=== PATIENT | female | born 1940 | race Caucasian/White ===

== ENCOUNTER 2020-04-09 11:13 | Emergency (ER) | payer MEDICARE, MEDICAID, SELFPAY ==
--- NOTE | 2020-04-09 11:26 | XR_ITS ---
EXAMINATION: XR CHEST CLINICAL INFORMATION: Altered mental status. COMPARISON: Chest radiographs dated 02/18/2018. TECHNIQUE: Frontal view of the chest was obtained. FINDINGS: The heart, great vessels, pulmonary vasculature mediastinum are stable. There is atherosclerotic calcification aortic knob. The lungs show no focal infiltrate, effusion or pneumothorax. There are old, healed bilateral rib fractures. There is no acute osseous abnormality. There is osteoarthritic change of the left acromial clavicular joint. Lower cervical orthopedic hardware is noted. IMPRESSION: No active cardiopulmonary disease.
[2020-04-09 11:28] VITALS: BP 175/90; PULSE 70; PULSE 72; RESP 18; TEMP 36.9; O2SAT 97; BMI 31.6
--- NOTE | 2020-04-09 11:42 | PC.NURSE ---
Patient refusing POC for PCT, refusing blood work, took off blood pressure cuff during triage. This rn spoke with daughter Ute at [phone] and said the snf called her and said that patient was up all night yelling and seeing bugs.
[2020-04-09 13:00] LABS: MANUAL DIFF FLAG NO
[2020-04-09 13:05] LABS: Basophils Absolute Auto 0.1 X10*3/uL (0.0-0.2); Basophils Percent Auto 0.6 % (0-2); Eosinophils Absolute Auto 0.3 X10*3/uL (0.0-0.4); Eosinophils Percent Auto 3.8 % (0-4); Hemoglobin 12.9 g/dl (12.0-16.0); Imm Gran Abs Auto 0.02 X10*3/uL (0.00-0.03); Imm Gran Pct Auto 0.3 % (0.0-0.4); Lymphocytes Percent Auto 25.8 % (20-40); Mean Corpuscular HGB Conc 33.1 g/dl (31.0-35.0); Mean Corpuscular Hemoglobin 28.7 pg (27.0-33.0); Mean Corpuscular Volume 86.9 fL (80-98); Mean Platelet Volume 12.2 fL (9.4-12.3); Monocytes Absolute Auto 0.5 X10*3/uL (0.1-1.2); Monocytes Percent Auto 6.2 % (2-11); Neutrophils Percent Auto 63.3 % (45-73); Platelet Count 209 X10*3/uL (160-400); Red Blood Count 4.49 X10*6/uL (4.20-5.50); Red Cell Distribution Width 13.9 % (11.0-16.0); White Blood Count 7.9 X10*3/uL (4.8-10.8)
--- NOTE | 2020-04-09 13:20 | PC.NURSE ---
Patient agreed to blood work, tolerating lunch
--- NOTE | 2020-04-09 13:32 | MHC.CM.ED ---
Patient came to ER from [facility]. Per Gail Scarlett sonia patient was sent to the ER due to behaviors . Patient was calling 911, refusing care and medication and hallucinating. Jessica MONTES Aware. Patient is a bed hold at [facility]. Continue to monitor for d/c needs.
[2020-04-09 13:41] LABS: Alanine Aminotransferase 8 U/L (0-31); Albumin Level 3.7 g/dL (3.5-5.0); Alkaline Phosphatase 117 U/L (39-117); Anion Gap 11 (12-20); Aspartate Amino Transferase 11 U/L (5-31); Bilirubin Direct 0.2 mg/dL (0.0-0.5); Bilirubin Total 0.4 mg/dL (0.0-1.0); Blood Urea Nitrogen 22 mg/dL (9-16); Calcium 9.3 mg/dL (8.4-10.2); Carbon Dioxide 28 mmol/L (22-29); Chloride 99 mmol/L (96-108); Creatinine Clr Calc Pharmacy 42.1; Estimated Glomerular Filt Rate 54; Glucose Random 425 mg/dL (60-115); Potassium 5.2 mmol/l (3.3-5.1); Sodium 133 mmol/L (135-145)
--- NOTE | 2020-04-09 14:42 | MHC.CM.ED ---
Waiting for provider documentation, so it can be uploaded to [facility]. Continue to monitor for d/c needs.
--- NOTE | 2020-04-09 14:49 | ED_ITS ---
HPI - Medical Clearance General Chief complaint: Medical Clearance Stated complaint: NON MED COMPLIANT Time Seen by Provider: 04/09/20 11:25 Source: patient and EMS Limitations: other ( Dementia) History of Present Illness HPI Narrative: 79-year-old female from [facility] presenting via EMS with complaint of non medication compliance today. Per EMS yelling and agitated. Patient arrival is upset that she has come to Emergency Room offers no complaints. Onset (ago): day(s) Alleged Intoxication: No Compliant with Home Medications: Yes ( states anything this morning because she was upset with nursing staff) Traumatic Symptoms: denies traumatic injury Associated Symptoms: denies other symptoms Treatments Prior to Arrival: none Related Information Allergies Allergy/AdvReac Type Severity Reaction Status Date / Time No Known Allergies Allergy Unverified 03/25/20 15:10 Review of Systems Review of Systems: Constitutional: No Weight loss, No Fever, No Chills, No Night Sweats, No Fatigue, No Malaise ENT/Mouth: No Hearing loss, No Ear Pain, No Nasal Congestion, No Sinus Pain, No Hoarseness, No sore throat, No Rhinorrhea, No Swallowing Difficulty Eyes: No Eye Pain, No Swelling, No Redness, No Foreign Body, No Discharge, No Vision Changes Cardiovascular: No Chest Pain, No SOB, No Dyspnea on Exertion, No Orthopnea, No Edema, No Palpitations Respiratory: No Cough, No Sputum, No Wheezing, No Smoke Exposure, No Dyspnea Gastrointestinal: No Nausea, No Vomiting, No Diarrhea, No Constipation, No abdominal Pain, No Hematochezia, No Melena Genitourinary: no irregular bleeding, No Dysuria, No Urinary Frequency, No Hematuria, No Urinary Incontinence, No Urgency, No Flank Pain, No Urinary Flow Changes, No Hesitancy Musculoskeletal: No joint pain, No Myalgias, No Joint Swelling Skin: No Skin Lesions, No rash Neuro: No Weakness, No Numbness, No Paresthesias, No Loss of Consciousness, No Dizziness, No Headache Psych: No Anxiety/Panic, No Depression, No SI/HI/AH/VH, No Social Issues, Heme/Lymph: No Bruising, No Bleeding,No Lymphadenopathy Endocrine: No Polyuria, No Polydipsia, No Temperature Intolerance PMFSH Past Medical History Medical History Acute respiratory failure Adjustment disorder Anxiety Aortic valvar stenosis Blindness Dementia Diverticulosis Falls Fibromyalgia GERD (gastroesophageal reflux disease) Hyperlipemia Hypertension Incontinence Major depressive disorder Mitral valve stenosis Obesity Opioid dependence Personality disorder Spinal stenosis TIA (transient ischemic attack) Type 2 diabetes mellitus Vitamin D deficiency Weakness Social History Social History Alcohol intake: never Smoked in Last 30 Days: No Advance Directives: No Advance Directives Information Provided: No Physical Exam Vital Signs and I&O and Narrative: Vital Signs and I&O: Vital Signs Temp 98.5 F 04/09/20 11:28 Pulse 72 04/09/20 11:28 Resp 18 04/09/20 11:28 Pulse Ox 97 04/09/20 11:28 Intake & Output 04/08/20 04/09/20 04/09/20 18:59 06:59 18:59 Weight 73.457 kg Body Mass Index 31.6 Const: General: cooperative and healthy appearing; No acute distress or intoxicated appearing Nutritional Appearance: average body habitus Orientation/consciousness: oriented to person, No oriented to place and No oriented to time ( is ) HENMT: Head: Yes normal to inspection Ears: hearing grossly normal bilaterally Eyes: General: appearance normal, both eyes and all related structures Visual Bermudez: normal visual bermudez by confrontation Neck: Neck: Yes normal visual inspection, No positive Brudzinski's sign, No positive Kernig's sign and No tender Thyroid: Thyroid normal Chest: Chest palpation & inspection: normal inspection of the chest Resp: Effort & Inspection: normal respiratory effort Cardio: Jugular venous distension: no JVD GI: Inspection: Yes normal to inspection Percussion: Yes normal to percussion Auscultation: normal bowel sounds : General: Yes no CVA tenderness Back/Spine/Pelvis: Back: no CVA tenderness Skin: General skin exam: no rashes or lesions noted Neuro: General: oriented to person, No oriented to place and No oriented to time ( is ) Extrem: General: Yes normal to inspection Course Course Hospital Course: will need labs for medical screening. After redirection she requested that she have pizza prior to having her labs done. She offers no medical complaints. Reevaluation(s) Reevaluation #1: Case discussed with ED case management Reevaluation #2: labs show hyperglycemia without evidence of diabetic ketoacidosis. History of diabetes. Will be given her routine medication plans to return to skilled nurse facility. She offers no complaints. Has been resting comfortably after eating. Refusing to provide UA. States she would like to go back to SNF Consultations Consultation #1: ED Case mng MDM - Medical Clearance MDM Narrative Medical decision making narrative: dementia, dementia with behavior disturbance, urine tract infection Medical Records Attestation: I reviewed the patient's medical records. Lab Data Attestation: I reviewed the patient's lab results. Result diagrams: 04/09/20 12:56 04/09/20 12:56 Labs: Lab Results 04/09/20 04/09/20 Range/Units 12:56 12:56 WBC 7.9 (4.8-10.8) X10*3/uL RBC 4.49 (4.20-5.50) X10*6/uL Hgb 12.9 (12.0-16.0) g/dl Hct 39.0 (37-47) % MCV 86.9 (80-98) fL MCH 28.7 (27.0-33.0) pg MCHC 33.1 (31.0-35.0) g/dl RDW 13.9 (11.0-16.0) % Plt Count 209 (160-400) X10*3/uL MPV 12.2 (9.4-12.3) fL Immature Gran % (Auto) 0.3 (0.0-0.4) % Neut % (Auto) 63.3 (45-73) % Lymph % (Auto) 25.8 (20-40) % [place] % (Auto) 6.2 (2-11) % Eos % (Auto) 3.8 (0-4) % Baso % (Auto) 0.6 (0-2) % Neut # (Auto) 5.0 (2.0-8.3) X10*3/uL Lymph # (Auto) 2.0 (1.2-4.9) X10*3/uL [place] # (Auto) 0.5 (0.1-1.2) X10*3/uL Eos # (Auto) 0.3 (0.0-0.4) X10*3/uL Baso # (Auto) 0.1 (0.0-0.2) X10*3/uL Abs Immat Gran (auto) 0.02 (0.00-0.03) X10*3/uL Absolute Nucleated RBC 0.000 (0.0-0.012) X10*3/uL Nucleated RBC % (auto) 0.0 (0.0-0.2) /100WBC Sodium 133 L (135-145) mmol/L Potassium 5.2 H (3.3-5.1) mmol/l Chloride 99 (96-108) mmol/L Carbon Dioxide 28 (22-29) mmol/L Anion Gap 11 L (12-20) BUN 22 H (9-16) mg/dL Creatinine 1.00 (0.5-1.4) mg/dL Estim Creat Clear Calc 42.1 Estimated GFR 54 Random Glucose 425 H* (60-115) mg/dL Calcium 9.3 (8.4-10.2) mg/dL Total Bilirubin 0.4 (0.0-1.0) mg/dL Direct Bilirubin 0.2 (0.0-0.5) mg/dL AST 11 (5-31) U/L ALT 8 (0-31) U/L Alkaline Phosphatase 117 (39-117) U/L Total Protein 7.0 (6.5-8.0) g/dL Albumin 3.7 (3.5-5.0) g/dL Discharge Plan Discharge Clinical Impression: Chronic hyperglycemia, Dementia Patient Disposition: Xfer SNF Referrals: [facility] [Outside] Physician,Unknown [Primary Care Provider] -
[2020-04-09 15:18] VITALS: BP 127/60; PULSE 87; RESP 16; TEMP 36.9; O2SAT 95
--- NOTE | 2020-04-09 15:20 | MHC.CM.ED ---
Per Elias, QUALITY CONTROL SUPERVISOR, patient is cleared to return to [facility]. Per Scarlett Reynolds liaison, edwin can leave ER at 430pm. Action [facility] booked. Med nec with chart. Patient, [facility] QUALITY CONTROL SUPERVISOR and Maria T MONTES aware.
== END 2020-04-09 16:29 | disposition skilled nursing facility (03) ==
PROVIDERS: Nurse Practitioner Primary Care; Emergency Provider Emergency Medicine
DX: E11.65 Type 2 diabetes mellitus with hyperglycemia (principal); F03.90 Unspecified dementia, unspecified severity, without behavioral disturbance, psychotic disturbance, mood disturbance, and anxiety; Z91.14 Patient's other noncompliance with medication regimen; Z79.4 Long term (current) use of insulin; Z79.899 Other long term (current) drug therapy
CPT/HCPCS: 36415; 71045; 80048; 80076; 85025; 96360; 99284; 99285

== ENCOUNTER 2020-04-30 13:28 | Emergency (ER) | payer MEDICARE, MEDICAID, SELFPAY ==
[2020-04-30 13:47] VITALS: BP 113/70; BP 120/63; PULSE 71; PULSE 79; RESP 15; TEMP 36.2; O2SAT 94; O2SAT 95; BMI 32.4
--- NOTE | 2020-04-30 13:50 | ED_ITS ---
HPI - Extremity Problem General Chief complaint: Extremity Injury, Upper Stated complaint: broken hand,xray done yesterday Time Seen by Provider: 04/30/20 13:56 Source: patient Mode of arrival: EMS Limitations: no limitations History of Present Illness HPI Narrative: patient presents to the ED for left hand pain. Patient states 2 days ago at nursing facility, while they were adjusting her someone pulled on her hand hard by accident since then she has had pain. Patient denies any other complaint. Related Data Previous Rx's Medication Instructions Recorded naproxen 500 mg PO BID PRN #20 tab 04/30/20 Allergies Allergy/AdvReac Type Severity Reaction Status Date / Time No Known Allergies Allergy Unverified 03/25/20 15:10 Review of Systems Review of Systems: Patient denies any headache, chest pain, shortness of breath, nausea, vomiting, abdominal pain, dizziness, dysuria, hematuria, fever, chills, back pain, weakness, slurred speech, or rash. Patient main complaint is left hand pain Yes all other systems are reviewed and are negative PMFSH Past Medical History Medical History Acute respiratory failure Adjustment disorder Anxiety Aortic valvar stenosis Blindness Dementia Diverticulosis Falls Fibromyalgia GERD (gastroesophageal reflux disease) Hyperlipemia Hypertension Incontinence Major depressive disorder Mitral valve stenosis Obesity Opioid dependence Personality disorder Spinal stenosis TIA (transient ischemic attack) Type 2 diabetes mellitus Vitamin D deficiency Weakness Social History Social History Alcohol intake: never Smoked in Last 30 Days: No Use of substances other than those prescribed or required for medical reasons: No Advance Directives: Yes Advance Directives Information Provided: No Advance Directives on File: No Physical Exam Vital Signs: Vital Signs: Vital Signs Temp Pulse Resp BP Pulse Ox 04/30/20 16:25 16 04/30/20 14:30 16 04/30/20 13:47 97.2 F 79 15 113/70 94 Body Mass Index 32.4 Const: General: cooperative, healthy appearing, comfortable, well developed and alert Orientation/consciousness: patient oriented x3 HENMT: Head: Yes normal to inspection Eyes: General: appearance normal, both eyes and all related structures Neck: Neck: Yes normal visual inspection Chest: Chest palpation & inspection: normal inspection of the chest Resp: Effort & Inspection: normal respiratory effort Cardio: Jugular venous distension: no JVD Heart sounds: S1 normal heart sound present and S2 normal heart sound present GI: Inspection: Yes normal to inspection and No abdominal wall ecchymosis Percussion: Yes normal to percussion Auscultation: normal bowel sounds : General: No CVA tenderness and Yes no CVA tenderness Back/Spine/Pelvis: Back: no CVA tenderness, No CVA tenderness and No back tenderness Skin: General skin exam: no rashes or lesions noted Trauma: no lacerations or abrasions Neuro: General: patient oriented x3 and CN's II-XI intact bilaterally Cranial nerves: Yes CN's II-XII intact bilaterally Extrem: Other: left hand positive for slight ecchymosis and pinpoint tenderness on 5th finger and metacarpal area. Vascular exam is intact. General: Yes normal to inspection and Yes full ROM Course Course Course Narrative: X-ray from rehab shows left and probably hit her hand she will be placed in ulnar gutter. Reevaluation(s) Reevaluation #1: Patient states pain in sacral area. Sacral area negative for any ecchymosis, mass, pus discharge, foul odor. Patient is safe for discharge. Negative for any spine tenderness Time: 16:13 MDM - Extremity (Nontraumatic) MDM Narrative Medical decision making narrative: Left hand fracture placed in splint. Discharge Plan Discharge Clinical Impression: Fracture of finger of left hand Patient Disposition: Elopement Instructions: Finger Fracture (ED) Additional Instructions: return to the ED for any swelling, redness, severe pain, bluish discoloration of fingers, or any other concerning symptoms. Prescriptions: New naproxen 500 mg tablet 500 mg PO BID PRN (Reason: pain) Qty: 20 RF: 0 Referrals: Dinesh Cerrato MD [Physician] - 2 days (Left proximal phalanx base fracture. Placed in ulnar gutter. ) Print Language: Japanese
[2020-04-30 14:30] VITALS: RESP 16
--- NOTE | 2020-04-30 14:55 | PC.NURSE ---
splint placed by pct
[2020-04-30 16:25] VITALS: RESP 16
--- NOTE | 2020-04-30 16:28 | PC.NURSE ---
ATTEMPTED TO CALL MARLENY MARAVILLA, HUNG UP ON MULTIPLE TIMES
--- NOTE | 2020-04-30 16:32 | PC.NURSE ---
REPORT GIVEN TO SHREYA
== END 2020-04-30 18:50 | disposition left against medical advice (07) ==
PROVIDERS: Emergency Provider Emergency Medicine; PCP Internal Medicine
DX: S62.92XA Unspecified fracture of left hand, initial encounter for closed fracture (principal); W22.8XXA Striking against or struck by other objects, initial encounter; M53.3 Sacrococcygeal disorders, not elsewhere classified; I10 Essential (primary) hypertension; F11.20 Opioid dependence, uncomplicated; Y93.89 Activity, other specified; Y92.129 Unspecified place in nursing home as the place of occurrence of the external cause; Y99.9 Unspecified external cause status; Z91.81 History of falling; Z86.73 Personal history of transient ischemic attack (TIA), and cerebral infarction without residual deficits
CPT/HCPCS: 29125; 99284

== ENCOUNTER 2020-10-12 18:59 | Emergency (ER) | payer MEDICARE, MEDICAID, SELFPAY ==
--- NOTE | ~2020-10-12 | CT_ITS ---
EXAMINATION: CT CHEST WITH CONTRAST CLINICAL INFORMATION: Left lower rib pain post fall 4 days ago COMPARISON: None TECHNIQUE: Multidetector volumetric CT imaging of the chest was obtained after the administration of 100 mL of Omnipaque 350 intravenous contrast without immediate adverse reactions. Axial MIP volume rendering provided. Sagittal and coronal reformatted images were obtained. This CT examination was performed using dose optimization techniques as appropriate, variously including the following: *Automated exposure control *Adjustment of mA and/or kV according to patient size (this includes techniques or standardized protocols for targeted exams where dose is matched to indication/reason for exam; i.e. extremities or head) *Use of iterative reconstruction technique DLP: 294 mGy-cm FINDINGS: LUNGS: Minimal dependent bibasilar atelectasis. No dense consolidation or pneumothorax. Central airways unremarkable MEDIASTINUM: Prominent vascular calcification within the aorta and coronary vessels. PLEURA: There is no pleural effusion. No pleural mass or thickening. AXILLA: No lymphadenopathy. BONES: Although there are healed rib fractures bilaterally there is a minimally displaced anterolateral left third rib fracture seen. Possibly nondisplaced fourth rib fracture although this may be more chronic in nature. UPPER ABDOMEN: Unremarkable CT/CT chest w con IMPRESSION: Although there are healed rib fractures bilaterally, there is a minimally displaced anterolateral left third rib fracture that appears to be more acute. Possible additional fourth rib fracture that is nondisplaced but this is more likely chronic.
[2020-10-12 19:25] VITALS: BP 116/63; BP 130/63; PULSE 92; PULSE 99; RESP 16; TEMP 36.8; O2SAT 100; O2SAT 95; BMI 36.6
[2020-10-12 19:30] LABS: Glucose, Whole Blood 538 mg/dL (60-115)
--- NOTE | 2020-10-12 19:37 | ECG_ITS ---
Test Reason : LEFT CHEST PAIN Blood Pressure : / mmHG Vent. Rate : 090 BPM Atrial Rate : 090 BPM P-R Int : 178 ms QRS Dur : 110 ms QT Int : 384 ms P-R-T Axes : 047 023 050 degrees QTc Int : 469 ms Normal sinus rhythm Possible Left atrial enlargement Borderline ECG When compared with ECG of 18-FEB-2018 19:12, Borderline criteria for Inferior infarct are no longer Present Referred By: Jean-Pierre Stapleton Electronically Signed By:TONYA PAZ MD
--- NOTE | 2020-10-12 19:37 | ED.FALL ---
HPI - Fall General Chief Complaint: General Medical Stated Complaint: LT SIDE FLANK PAIN X 4 DAYS,HYPERGLYCEMIA Time Seen by Provider: 10/12/20 19:32 Source: patient Mode of arrival: EMS Limitations: no limitations History of Present Illness HPI Narrative: Patient diabetic came from [facility] for the fall which happened 4 days ago seen with the nurse today and sent here for further evaluation. Before patient she does not know what made her fall for about 4 days ago she fell and hit the floor facially left ribs complaining of pain in the anterior chest wall lower ribs area. No bruise noticed no nausea no vomiting also noticed patient's blood sugar was 538 on arrival Onset (ago): day(s) (4) Fall from: standing Fall witnessed: no Place fall occurred: alf/[facility]NF Loss of consciousness: none Related Data Previous Rx's Medication Instructions Recorded naproxen 500 mg PO BID PRN #20 tab 04/30/20 lidocaine [Salonpas (lidocaine)] 1 patch TOPICAL DAILY PRN #10 ea 10/12/20 tramadol 50 mg PO Q6H PRN #20 tab 10/12/20 Allergies Allergy/AdvReac Type Severity Reaction Status Date / Time No Known Allergies Allergy Unverified 03/25/20 15:10 Review of Systems Review of Systems: Constitutional : No Weight loss, No Fever, No Chills ENT/Mouth : No sore throat, No Rhinorrhea Eyes: No Eye Pain, No Swelling Cardiovascular : +L Chest Pain, no palpitations Respiratory : No Cough, No Sputum, no shortness of breath Gastrointestinal : no Nausea, No Vomiting, No Diarrhea, No abdominal Pain, no black stools Genitourinary : No Dysuria, No Urinary Frequency Musculoskeletal : No joint pain, No Myalgias, No Joint Swelling Skin : No Skin Lesions, No rash Neuro : No Weakness, No Numbness, No Dizziness, No Headache Psych : No Anxiety/Panic, No Depression Heme/Lymph: No Bruising, No Lymphadenopathy Endocrine : No Polyuria, No Polydipsia All other systems reviewed and are negative [facility] Past Medical History Medical History Acute respiratory failure Adjustment disorder Anxiety Aortic valvar stenosis Blindness Dementia Diverticulosis Falls Fibromyalgia GERD (gastroesophageal reflux disease) Hyperlipemia Hypertension Incontinence Major depressive disorder Mitral valve stenosis Obesity Opioid dependence Personality disorder Spinal stenosis TIA (transient ischemic attack) Type 2 diabetes mellitus Vitamin D deficiency Weakness Social History Social History Alcohol intake: never Advance Directives: No Advance Directives Information Provided: Yes Physical Exam Vital Signs: Vital Signs: Last Vital Signs Temp 98.3 F 10/12/20 19:25 Pulse 92 10/12/20 19:25 Resp 16 10/12/20 19:25 BP 116/63 10/12/20 19:25 Pulse Ox 95 10/12/20 19:25 Body Mass Index 36.6 Const: General: comfortable and no acute distress Orientation/consciousness: patient oriented x3 HENMT: Head: Yes normal to inspection, Yes normocephalic and Yes atraumatic Ears: hearing grossly normal bilaterally Mouth: Normal oral and palatal mucosa present Eyes: General: appearance normal, both eyes and all related structures Conjunctivae: conjunctivae normal Sclerae: sclerae normal Pupils: Equal, round and reactive pupils present Neck: Neck: Yes normal visual inspection, Yes full ROM and No midline deformity Chest: Chest palpation & inspection: normal inspection of the chest Chest/axillae images: 1. Left lower ribs tenderness no ecchymosis no deformity Resp: Effort & Inspection: normal respiratory effort and able to speak in complete sentences Auscultation: clear to auscultation bilaterally Cardio: Palpation: normal PMI Rate: regular rate Rhythm: regular rhythm Heart sounds: S1 normal heart sound present and S2 normal heart sound present Peripheral pulses: Peripheral pulses 2+ throughout GI: Inspection: Yes normal to inspection Palpation (GI): Soft to palpation and nontender : General: Yes no CVA tenderness Back/Spine/Pelvis: Back: no CVA tenderness Thoracic/Lumbar Spine: thoracic and lumbar spine normal to inspection Skin: General skin exam: no rashes or lesions noted Neuro: General: patient oriented x3, moves all extremities, no focal motor deficits and CN's II-XI intact bilaterally Cranial nerves: Yes Equal, round and reactive pupils present MDM - Fall Differential Diagnosis Differential diagnosis: Likely fracture Medical Records Attestation: I reviewed the patient's medical records. Lab Data Attestation: I reviewed the patient's lab results. Result diagrams: 10/12/20 19:47 10/12/20 19:47 Labs: Lab Results 10/12/20 10/12/20 10/12/20 Range/Units 19:26 19:47 19:47 WBC 9.7 (4.8-10.8) X10*3/uL RBC 3.99 L (4.20-5.50) X10*6/uL Hgb 11.8 L (12.0-16.0) g/dl Hct 35.1 L (37-47) % MCV 88.0 (80-98) fL MCH 29.6 (27.0-33.0) pg MCHC 33.6 (31.0-35.0) g/dl RDW 12.8 (11.0-16.0) % Plt Count 213 (160-400) X10*3/uL MPV 12.3 (9.4-12.3) fL Immature Gran % (Auto) 0.4 (0.0-0.4) % Neut % (Auto) 68.4 (45-73) % Lymph % (Auto) 19.6 L (20-40) % [place] % (Auto) 7.1 (2-11) % Eos % (Auto) 4.1 H (0-4) % Baso % (Auto) 0.4 (0-2) % Lymph # (Auto) 1.9 (1.2-4.9) X10*3/uL [place] # (Auto) 0.7 (0.1-1.2) X10*3/uL Eos # (Auto) 0.4 (0.0-0.4) X10*3/uL Baso # (Auto) 0.0 (0.0-0.2) X10*3/uL Abs Immat Gran (auto) 0.04 H (0.00-0.03) X10*3/uL Absolute Neuts (auto) 6.6 (2.0-8.3) X10*3/uL Absolute Nucleated RBC 0.000 (0.0-0.012) X10*3/uL Nucleated RBC % (auto) 0.0 (0.0-0.2) /100WBC PT 12.5 (10.8-13.0) SEC INR 1.1 (0.9-1.1) Sodium (135-145) mmol/L Potassium (3.3-5.1) mmol/L Chloride (96-108) mmol/L Carbon Dioxide (22-29) mmol/L Anion Gap (12-20) BUN (9-16) mg/dL Creatinine (0.5-1.4) mg/dL Estim Creat Clear Calc Estimated GFR POC Glucose 538 H* (60-115) mg/dL Random Glucose (60-115) mg/dL Calcium (8.4-10.2) mg/dL Total Bilirubin (0.0-1.0) mg/dL Direct Bilirubin (0.0-0.5) mg/dL AST (5-31) U/L ALT (0-31) U/L Alkaline Phosphatase (39-117) U/L Troponin I High Sens (<3.5-17.0) ng/L Total Protein (6.5-8.0) g/dL Albumin (3.5-5.0) g/dL 10/12/20 10/12/20 10/12/20 Range/Units 19:47 19:47 21:20 WBC (4.8-10.8) X10*3/uL RBC (4.20-5.50) X10*6/uL Hgb (12.0-16.0) g/dl Hct (37-47) % MCV (80-98) fL MCH (27.0-33.0) pg MCHC (31.0-35.0) g/dl RDW (11.0-16.0) % Plt Count (160-400) X10*3/uL MPV (9.4-12.3) fL Immature Gran % (Auto) (0.0-0.4) % Neut % (Auto) (45-73) % Lymph % (Auto) (20-40) % [place] % (Auto) (2-11) % Eos % (Auto) (0-4) % Baso % (Auto) (0-2) % Lymph # (Auto) (1.2-4.9) X10*3/uL [place] # (Auto) (0.1-1.2) X10*3/uL Eos # (Auto) (0.0-0.4) X10*3/uL Baso # (Auto) (0.0-0.2) X10*3/uL Abs Immat Gran (auto) (0.00-0.03) X10*3/uL Absolute Neuts (auto) (2.0-8.3) X10*3/uL Absolute Nucleated RBC (0.0-0.012) X10*3/uL Nucleated RBC % (auto) (0.0-0.2) /100WBC PT (10.8-13.0) SEC INR (0.9-1.1) Sodium 129 L (135-145) mmol/L Potassium 4.5 (3.3-5.1) mmol/L Chloride 96 (96-108) mmol/L Carbon Dioxide 24 (22-29) mmol/L Anion Gap 14 (12-20) BUN 29 H (9-16) mg/dL Creatinine 1.34 (0.5-1.4) mg/dL Estim Creat Clear Calc 34.0 Estimated GFR 38 POC Glucose 391 H* (60-115) mg/dL Random Glucose 590 H* (60-115) mg/dL Calcium 8.6 D (8.4-10.2) mg/dL Total Bilirubin 0.4 (0.0-1.0) mg/dL Direct Bilirubin 0.2 (0.0-0.5) mg/dL AST 10 (5-31) U/L ALT 9 (0-31) U/L Alkaline Phosphatase 150 H D (39-117) U/L Troponin I High Sens 9.6 (<3.5-17.0) ng/L Total Protein 6.7 (6.5-8.0) g/dL Albumin 3.5 (3.5-5.0) g/dL 10/12/20 Range/Units 23:46 WBC (4.8-10.8) X10*3/uL RBC (4.20-5.50) X10*6/uL Hgb (12.0-16.0) g/dl Hct (37-47) % MCV (80-98) fL MCH (27.0-33.0) pg MCHC (31.0-35.0) g/dl RDW (11.0-16.0) % Plt Count (160-400) X10*3/uL MPV (9.4-12.3) fL Immature Gran % (Auto) (0.0-0.4) % Neut % (Auto) (45-73) % Lymph % (Auto) (20-40) % [place] % (Auto) (2-11) % Eos % (Auto) (0-4) % Baso % (Auto) (0-2) % Lymph # (Auto) (1.2-4.9) X10*3/uL [place] # (Auto) (0.1-1.2) X10*3/uL Eos # (Auto) (0.0-0.4) X10*3/uL Baso # (Auto) (0.0-0.2) X10*3/uL Abs Immat Gran (auto) (0.00-0.03) X10*3/uL Absolute Neuts (auto) (2.0-8.3) X10*3/uL Absolute Nucleated RBC (0.0-0.012) X10*3/uL Nucleated RBC % (auto) (0.0-0.2) /100WBC PT (10.8-13.0) SEC INR (0.9-1.1) Sodium (135-145) mmol/L Potassium (3.3-5.1) mmol/L Chloride (96-108) mmol/L Carbon Dioxide (22-29) mmol/L Anion Gap (12-20) BUN (9-16) mg/dL Creatinine (0.5-1.4) mg/dL Estim Creat Clear Calc Estimated GFR POC Glucose 296 H (60-115) mg/dL Random Glucose (60-115) mg/dL Calcium (8.4-10.2) mg/dL Total Bilirubin (0.0-1.0) mg/dL Direct Bilirubin (0.0-0.5) mg/dL AST (5-31) U/L ALT (0-31) U/L Alkaline Phosphatase (39-117) U/L Troponin I High Sens (<3.5-17.0) ng/L Total Protein (6.5-8.0) g/dL Albumin (3.5-5.0) g/dL Imaging Data CT scan - chest: Attestation: I personally reviewed and interpreted this imaging study as follows: Radiologist's impression: [address] [id number] Scan ReportSigned Patient: Edith Griffin#: [id number]: 3Acct:[id number]/Sex: 79 / FADM Date: 10/12/20Loc: [facility] Dr: Ordering Physician: Jean-Pierre Stapleton MD Date of Service: 10/12/20 Procedure(s): CT chest w con Accession Number(s): [id number] cc: Jean-Pierre Stapleton MD~ EXAMINATION: CT CHEST WITH CONTRAST CLINICAL INFORMATION: Left lower rib pain post fall 4 days ago COMPARISON: None TECHNIQUE: Multidetector volumetric CT imaging of the chest was obtained after the administration of 100 mL of Omnipaque 350 intravenous contrast without immediate adverse reactions. Axial MIP volume rendering provided. Sagittal and coronal reformatted images were obtained. This CT examination was performed using dose optimization techniques as appropriate, variously including the following: *Automated exposure control *Adjustment of mA and/or kV according to patient size (this includes techniques or standardized protocols for targeted exams where dose is matched to indication/reason for exam; i.e. extremities or head) *Use of iterative reconstruction technique DLP: 294 mGy-cm FINDINGS: LUNGS: Minimal dependent bibasilar atelectasis. No dense consolidation or pneumothorax. Central airways unremarkable MEDIASTINUM: Prominent vascular calcification within the aorta and coronary vessels. PLEURA: There is no pleural effusion. No pleural mass or thickening. AXILLA: No lymphadenopathy. BONES: Although there are healed rib fractures bilaterally there is a minimally displaced anterolateral left third rib fracture seen. Possibly nondisplaced fourth rib fracture although this may be more chronic in nature. UPPER ABDOMEN: Unremarkable CT/CT chest w con IMPRESSION: Although there are healed rib fractures bilaterally, there is a minimally displaced anterolateral left third rib fracture that appears to be more acute. Possible additional fourth rib fracture that is nondisplaced but this is more likely chronic. Dictated By:PAMELA CHERRY MD ECG Data Attestation: I personally reviewed and interpreted this ECG as follows: Interpretation: Normal sinus rhythm heart rate 90 beats per minute no acute ST T wave changes normal axis no acute ischemic Discharge Plan Discharge Clinical Impression: Fracture of rib of left side Qualifiers: Encounter type: initial encounter Rib fracture type: multiple ribs Fracture type: closed Qualified Code(s): S22.42XA - Multiple fractures of ribs, left side, initial encounter for closed fracture Hyperglycemia due to type 2 diabetes mellitus Qualifiers: Diabetes mellitus residential insulin use: with residential use Qualified Code(s): E11.65 - Type 2 diabetes mellitus with hyperglycemia Patient Disposition: [facility] Instructions: Rib Fracture (ED), Diabetic Hyperglycemia (ED) Additional Instructions: Drink Plenty of fluids take insulin according to sliding scale for high blood sugar pain medication for rib fracture as advised Prescriptions: New tramadol 50 mg tablet 50 mg PO Q6H PRN (Reason: pain) Qty: 20 RF: 0 lidocaine [Salonpas (lidocaine)] 4 % adhesive patch,medicated 1 patch topical DAILY PRN (Reason: pain) Qty: 10 RF: 0 No Action naproxen 500 mg tablet 500 mg PO BID PRN (Reason: pain) Qty: 20 RF: 0
[2020-10-12 19:52] LABS: MANUAL DIFF FLAG NO
[2020-10-12] MEDS: Insulin Lispro 100 UNIT/ML 3 ML VIAL 10 UNIT SUBCUT (19:54)
[2020-10-12] MEDS: 0.9 % Sodium Chloride 1,000 ML 999 ML IVCONT (19:55)
[2020-10-12 19:56] LABS: Basophils Percent Auto 0.4 % (0-2); Eosinophils Absolute Auto 0.4 X10*3/uL (0.0-0.4); Eosinophils Percent Auto 4.1 % (0-4); Hematocrit 35.1 % (37-47); Hemoglobin 11.8 g/dl (12.0-16.0); Imm Gran Abs Auto 0.04 X10*3/uL (0.00-0.03); Imm Gran Pct Auto 0.4 % (0.0-0.4); Lymphocytes Absolute Auto 1.9 X10*3/uL (1.2-4.9); Lymphocytes Percent Auto 19.6 % (20-40); Mean Corpuscular HGB Conc 33.6 g/dl (31.0-35.0); Mean Corpuscular Hemoglobin 29.6 pg (27.0-33.0); Mean Platelet Volume 12.3 fL (9.4-12.3); Monocytes Absolute Auto 0.7 X10*3/uL (0.1-1.2); Monocytes Percent Auto 7.1 % (2-11); Neutrophils Absolute Auto 6.6 X10*3/uL (2.0-8.3); Neutrophils Percent Auto 68.4 % (45-73); Platelet Count 213 X10*3/uL (160-400); Red Blood Count 3.99 X10*6/uL (4.20-5.50); Red Cell Distribution Width 12.8 % (11.0-16.0); White Blood Count 9.7 X10*3/uL (4.8-10.8)
[2020-10-12 20:03] LABS: INTERNATIONAL NORM RATIO 1.1 (0.9-1.1); Prothrombin Time 12.5 SEC (10.8-13.0)
--- NOTE | 2020-10-12 20:09 | PC.NURSE ---
HL STILL CLEANER TUBE #20G RIGHT HAND, INSULIN GIVEN PER EMAR, NS UP AND RUNNING W/O SITE INTACT. LABS DRAWN TO LAB. PT SPEAKING ON THE PHONE WITH DAUGHTER,
[2020-10-12 20:29] LABS: Troponin-I High Sensitivity 9.6 ng/L (<3.5-17.0)
[2020-10-12 20:31] LABS: Alanine Aminotransferase 9 U/L (0-31); Albumin Level 3.5 g/dL (3.5-5.0); Alkaline Phosphatase 150 U/L (39-117); Anion Gap 14 (12-20); Aspartate Amino Transferase 10 U/L (5-31); Bilirubin Direct 0.2 mg/dL (0.0-0.5); Bilirubin Total 0.4 mg/dL (0.0-1.0); Blood Urea Nitrogen 29 mg/dL (9-16); Calcium 8.6 mg/dL (8.4-10.2); Carbon Dioxide 24 mmol/L (22-29); Chloride 96 mmol/L (96-108); Estimated Glomerular Filt Rate 38; Glucose Random 590 mg/dL (60-115); Potassium 4.5 mmol/L (3.3-5.1); Sodium 129 mmol/L (135-145); Total Protein 6.7 g/dL (6.5-8.0)
--- NOTE | 2020-10-12 20:50 | PC.NURSE ---
UPDATED FAMILY. PT AWAITING FOR CT.
[2020-10-12 21:24] LABS: Glucose, Whole Blood 391 mg/dL (60-115)
[2020-10-12] MEDS: ondansetron HCL 4 MG/2 ML VIAL IVPUSH (21:26)
[2020-10-12] MEDS: Morphine Sulfate 4 MG/ML CARTRIDGE IVPUSH (21:26)
--- NOTE | 2020-10-12 21:26 | PC.NURSE ---
PT MEDICATED FOR PAIN P/T CT. PAIN RATED 10/10 TO LEFT RIB AREA. NO BRUISING NOTED TO AREA.
[2020-10-12] MEDS: iohexoL 350 MG/ML 100 ML INFUS..BTL IV (21:43)
--- NOTE | 2020-10-12 22:04 | PC.NURSE ---
PT RETURN FROM CT.
[2020-10-12] MEDS: Lidocaine 4 % Patch ADH..PATCH 1 PATCH TRANSDERMA (23:23)
[2020-10-12 23:50] LABS: Glucose, Whole Blood 296 mg/dL (60-115)
[2020-10-13] VITALS: BP 144/71; PULSE 90; RESP 18; TEMP 36.7; O2SAT 97
--- NOTE | 2020-10-13 00:47 | PC.NURSE ---
PT URINATED ON CLOTHING. PT CLEANED UP AND CHANGED INTO GOWN. VS OBTAINED. PT IN NAD.
--- NOTE | 2020-10-13 03:04 | PC.NURSE ---
EMS HERE TO P/U PT. IV REMOVED INTACT. D/C INSTRUCTIONS GIVEN TO PT. REPORT CALLED TO SHREYA RITTER. PT WAS VERY GRATEFUL FOR CARE AND LEFT ED AFTER EATING DIABETIC SNACKS. PT LEFT ED IN NAD.
== END 2020-10-13 03:07 | disposition skilled nursing facility (03) ==
PROVIDERS: Emergency Provider Internal Medicine
DX: S22.42XA Multiple fractures of ribs, left side, initial encounter for closed fracture (principal); E11.65 Type 2 diabetes mellitus with hyperglycemia; R10.9 Unspecified abdominal pain; W01.0XXA Fall on same level from slipping, tripping and stumbling without subsequent striking against object, initial encounter; Y93.9 Activity, unspecified; Y92.9 Unspecified place or not applicable; Y99.9 Unspecified external cause status; Z79.4 Long term (current) use of insulin; Z79.899 Other long term (current) drug therapy
CPT/HCPCS: 36415; 71260; 80048; 80076; 82947; 84484; 85025; 85610; 93005; 96361; 96365; 96372; 96375; 99283; 99284; J2270; J2405; Q9967

== ENCOUNTER 2021-11-08 10:03 | Inpatient (IN) | payer MEDICARE, MEDICAID, SELFPAY ==
[2021-11-08] VITALS (37 sets, daily range): BP systolic 61–162; BP diastolic 22–135; PULSE 85–113; RESP 16–48; TEMP 34.4–38.1; O2SAT 89–100; BMI 31.3
--- NOTE | ~2021-11-08 | XR_ITS ---
EXAMINATION: XR CHEST CLINICAL INFORMATION: Aspiration pneumonia. COMPARISON: 04/09/2020 chest radiograph. TECHNIQUE: Frontal view of the chest was obtained. FINDINGS: The lungs are clear. The heart and mediastinal structures are unremarkable. Healed bilateral rib fractures are noted. Partial visualization of posterior cervical spine fusion hardware. XR/XR chest 1V IMPRESSION: No acute cardiopulmonary process.
--- NOTE | ~2021-11-08 | CT_ITS ---
EXAMINATION: CT ABDOMEN AND PELVIS WITHOUT CONTRAST CLINICAL INFORMATION: Elevated lactic acid COMPARISON: None TECHNIQUE: Multidetector volumetric imaging was performed from the superior aspect of the liver through the pubic symphysis. Sagittal and coronal reformatted images were obtained on the technologist's workstation. This CT examination was performed using dose optimization techniques as appropriate, variously including the following: *Automated exposure control *Adjustment of mA and/or kV according to patient size (this includes techniques or standardized protocols for targeted exams where dose is matched to indication/reason for exam; i.e. extremities or head) *Use of iterative reconstruction technique DLP: 725 mGy-cm FINDINGS: LUNG BASES: Linear densities favoring fibrosis. Motion degradation limits assessment. Coarsened bronchovascular markings. No discrete lesion. Minor bibasilar pleural reaction. LIVER, GALLBLADDER, AND BILIARY TREE: The liver is normal in size, shape, and attenuation. No focal hepatic lesion or biliary ductal dilatation is present. Probable stones within the gallbladder lumen which is mildly distended. PANCREAS: Coarse punctate diffuse pancreatic parenchymal calcifications favoring sequelae of old hepatitis. No pancreatic duct dilatation or fluid collection. SPLEEN: Unremarkable. ADRENAL GLANDS: Unremarkable. KIDNEYS AND URETERS: The kidneys are normal in size, shape, and attenuation. No hydronephrosis, hydroureter, or calculi seen. No perinephric stranding. Incidental renal cortical cysts. BLADDER: Ring catheter in place decompressed. GASTROINTESTINAL TRACT: Prominence of the anal rectal wall which be correlated with digital rectal exam. Stool limits assessment. ABDOMINAL WALL: No significant hernia is appreciated. LYMPH NODES: Normal. VASCULAR: Unremarkable. PELVIC VISCERA: Uterus appears to be deviated to the right of midline. There is nonspecific free fluid in the cul-de-sac as well as within the perihepatic location. OSSEOUS STRUCTURES: Right hip prosthesis in place. Severe degenerative disc disease throughout the lumbar spine. CT/CT abdomen pelvis wo con IMPRESSION: 1. Motion degradation limits assessment. Likely gallstones within a distended gallbladder. Correlate clinically concerning any signs and symptoms of acute cholecystitis. Discograms and 20, ultrasound may be obtained. 2. Nonspecific free fluid within the abdomen and pelvis. 3. Thickening of the rectosigmoid colon of uncertain significance. Correlate with digital rectal exam. Fleischner guidelines were followed.
--- NOTE | 2021-11-08 10:15 | ECG_ITS ---
Test Reason : HYPERGLYCEMIA Blood Pressure : / mmHG Vent. Rate : 114 BPM Atrial Rate : 114 BPM P-R Int : 128 ms QRS Dur : 156 ms QT Int : 408 ms P-R-T Axes : 000 051 042 degrees QTc Int : 562 ms Sinus tachycardia with Premature atrial complexes with Aberrant conduction Right bundle branch block Abnormal ECG When compared with ECG of 12-OCT-2020 19:57, Aberrant conduction is now Present Right bundle branch block is now Present Referred By: Tammy Nguyễn Electronically Signed By:TONYA PAZ MD
--- NOTE | 2021-11-08 10:24 | ED_ITS ---
HPI - Altered Mental Status General Chief Complaint: Recheck/Abnormal Lab/Rx Stated Complaint: ?DIABETIC COMA PER SNF Time Seen by Provider: 11/08/21 10:14 Source: EMS and old records reviewed Mode of arrival: EMS Limitations: altered mental status History of Present Illness HPI narrative: EMs was told the patient was fine this AM then vomited and became unresponsive with high BS - she was covered in brown emesis and had large BM - no other history reported MD complaint: altered mental status, decreased responsiveness and weakness Onset (ago): minute(s) (EMS was told prior to arrival ) Timing confirmed by: caregiver Severity: severe Consistency of symptoms: getting Worse Context: other (DM, hx of GIB, noncompliant with medications) Associated symptoms: denies other symptoms Treatments prior to arrival: IV fluid and oxygen Related Data Home Medications Medication Instructions Recorded Confirmed aspirin 81 mg tablet,delayed 81 mg PO DAILY 11/08/21 11/08/21 release atorvastatin 80 mg tablet 1 tab PO BEDTIME 11/08/21 11/08/21 ferrous sulfate 325 mg (65 mg 325 mg PO DAILY 11/08/21 11/08/21 iron) tablet furosemide 40 mg tablet 1 tab PO BID 11/08/21 11/08/21 gabapentin 100 mg capsule 2 cap PO TID 11/08/21 11/08/21 insulin glargine 100 unit/mL (3 32 unit SUBCUT DAILY 11/08/21 11/08/21 mL) subcutaneous pen (Basaglar KwikPen U-100 Insulin) melatonin 3 mg tablet 6 mg PO BEDTIME 11/08/21 11/08/21 metformin 1,000 mg tablet 1 tab PO BID 11/08/21 11/08/21 metoprolol tartrate 50 mg tablet 1 tab PO DAILY 11/08/21 11/08/21 Previous Rx's Medication Instructions Recorded lidocaine 4 % topical patch 1 patch TOPICAL DAILY PRN #10 ea 10/12/20 (Salonpas (lidocaine)) Allergies Allergy/AdvReac Type Severity Reaction Status Date / Time No Known Allergies Allergy Verified 11/08/21 10:50 Review of Systems Review of Systems: ROS unable to be obtained due to altered mental status PMFSH Past Medical History Attestation statement: The following information was validated with the patient. Source: old records reviewed Medical History (Updated 11/08/21 @ 14:44 by Chuy Hidalgo MD) Acute respiratory failure Adjustment disorder Anxiety Aortic valvar stenosis Blindness Dementia Diverticulosis Falls Fibromyalgia GERD (gastroesophageal reflux disease) Hyperlipemia Hypertension Incontinence Major depressive disorder Mitral valve stenosis Obesity Opioid dependence Personality disorder Spinal stenosis TIA (transient ischemic attack) Type 2 diabetes mellitus Vitamin D deficiency Weakness Social History Social History (Updated 11/08/21 @ 10:26 by Tammy Nguyễn DO) Housing: [facility] Alcohol intake: never Patient Tobacco Use Status: Former Tobacco user Use of substances other than those prescribed or required for medical reasons: No Advance Directives: Yes Advance Directives on File: Yes Advance Directives Date on File: 11/08/21 Physical Exam ED Vital Signs: Vital Signs - 24 hr 11/08/21 10:45 11/08/21 12:05 11/08/21 12:46 Temperature 98.1 F 96.6 F L 96.1 F L Pulse Rate 109 H 97 86 Respiratory Rate 48 H 24 H 20 Blood Pressure 162/135 H 128/87 103/79 Pulse Oximetry 89 L BMI result Body Mass Index 31.3 Appearance: lethargic, laying on her side. moderate acute distress. Eyes: L pupil ERRL, R eye opacified and sunken in ENT: Pharynx dried brown liquid on corner of mouth, gurgling sounds heard Neck: Normal inspection. Neck supple. CVS: tachycardic heart rate and rhythm. Pulses normal. Respiratory: Mild respiratory distress - tachypnea and retractions. Breath sounds decreased and coarse Abdomen: Soft and nontender. Rectal: black stool noted Skin: Skin warm and dry. pale skin color. Normal skin turgor. Extremities: No lower extremity edema. No calf ttp Neuro: cannot participate moves all extremities Course Course Course Narrative: prolonged qTc magnesium ordered insulin gtt started daughter at bedside, overwhelmed will discuss goals of care again daughter who is HCP Ute wants insulin, treatments and blood - [facility] aware this is grave lactic acidosis due to HHS/DKA and GIB, not infection or severe sepsis, 3 UPRBCs ordered MDM - Altered Mental Status MDM Narrative Medical decision making narrative: 80 yo female with hx of pain, DM not compliant with meds is what EMS was told by SNF staff, respiratory failure, blindness, anxiety, GERD, dementia, HTN, HLD, T IA, opiate dependence here with reportedly episode of AMS and EMS noted vomiting with brown coloring and large BM - BS reading HI on glucometer. At this time patient is not responsive she is DNR/DNI and has signs of UGIB. Will need labs, type and screen, IVF, IV protonix, suspect aspiration pneumonia as well given hypoxia and diff clearing airway she is DNR/DNI and could not protect airway on NIPPV - zosyn ordered. I spoke to the HCP who is on the way given her presentation. IV insulin ordered as well. Lab Data Result diagrams: 11/08/21 11:16 11/08/21 11:16 Labs: Lab Results 11/08/21 11/08/21 11/08/21 Range/Units 10:20 10:23 10:27 WBC (4.8-10.8) X10*3/uL RBC (4.20-5.50) X10*6/uL Hgb (12.0-16.0) g/dl Hct (37.0-47.0) % MCV (80.0-98.0) fL MCH (27.0-33.0) pg MCHC (31.0-35.0) g/dl RDW (11.0-16.0) % Plt Count (160-400) X10*3/uL MPV (9.4-12.3) fL Immature Gran % (Auto) (0.0-0.4) % Neut % (Auto) (45-73) % Lymph % (Auto) (20-40) % [place] % (Auto) (2-11) % Eos % (Auto) (0-4) % Baso % (Auto) (0-2) % Lymph # (Auto) (1.2-4.9) X10*3/uL [place] # (Auto) (0.1-1.2) X10*3/uL Eos # (Auto) (0.0-0.4) X10*3/uL Baso # (Auto) (0.0-0.2) X10*3/uL Abs Immat Gran (auto) (0.00-0.03) X10*3/uL Absolute Neuts (auto) (2.0-8.3) x10*3/uL Absolute Nucleated RBC (0.0-0.012) X10*3/uL Nucleated RBC % (auto) (0.0-0.2) /100WBC PT (9.9-13.0) SEC INR (0.9-1.1) VBG pH (7.32-7.43) VBG pCO2 mmHg VBG pO2 mmHg VBG HCO3 (22-26) mmol/L VBG O2 Saturation % VBG Base Excess mmol/L Sodium (135-145) mmol/L Potassium (3.3-5.1) mmol/L Chloride (96-108) mmol/L Carbon Dioxide (22-29) mmol/L Anion Gap (12-20) BUN (9-16) mg/dL Creatinine (0.5-1.4) mg/dL Estim Creat Clear Calc Estimated GFR POC Glucose > 600 H* > 600 H* > 600 H* (60-115) mg/dL Random Glucose (60-115) mg/dL Lactic Acid (0.5-2.0) mmol/L Calcium (8.4-10.2) mg/dL Magnesium (1.6-2.6) mg/dL Total Bilirubin (0.0-1.0) mg/dL Direct Bilirubin (0.0-0.5) mg/dL AST (5-31) U/L ALT (0-31) U/L Alkaline Phosphatase (39-117) U/L Troponin I High Sens (<3.5-17.0) ng/L B-Natriuretic Peptide (<100) pg/mL Total Protein (6.5-8.0) g/dL Albumin (3.5-5.0) g/dL Lipase (8-78) U/L Urine Color Urine Appearance Urine pH (5.0-8.0) Ur Specific [place] (1.005-1.025) Urine Protein (NEG-TRACE) MG/DL Urine Glucose (UA) (NEG) MG/DL Urine Ketones (NEG) MG/DL Urine Blood (NEG) Urine Nitrite (NEG) Ur Leukocyte Esterase (NEG) Urine RBC (0) /HPF Urine WBC (0-4) /HPF Ur Squamous Epith Cells /LPF Amorphous Sediment /LPF Urine Bacteria /LPF Acetone, Qual (Negative) COVID-19 ([facility]ERSON) (Negative) COVID-19 Clin Com Blood Type Antibody Screen Crossmatch 11/08/21 11/08/21 11/08/21 Range/Units 11:16 11:16 11:16 WBC 20.2 H (4.8-10.8) X10*3/uL RBC 2.06 L (4.20-5.50) X10*6/uL Hgb 5.9 L* (12.0-16.0) g/dl Hct 19.5 L* (37.0-47.0) % MCV 94.7 (80.0-98.0) fL MCH 28.6 (27.0-33.0) pg MCHC 30.3 L (31.0-35.0) g/dl RDW 13.9 (11.0-16.0) % Plt Count 198 (160-400) X10*3/uL MPV 13.1 H (9.4-12.3) fL Immature Gran % (Auto) 1.4 H (0.0-0.4) % Neut % (Auto) 78.1 H (45-73) % Lymph % (Auto) 18.6 L (20-40) % [place] % (Auto) 1.5 L (2-11) % Eos % (Auto) 0.1 (0-4) % Baso % (Auto) 0.3 (0-2) % Lymph # (Auto) 3.7 (1.2-4.9) X10*3/uL [place] # (Auto) 0.3 (0.1-1.2) X10*3/uL Eos # (Auto) 0.0 (0.0-0.4) X10*3/uL Baso # (Auto) 0.1 (0.0-0.2) X10*3/uL Abs Immat Gran (auto) 0.29 H (0.00-0.03) X10*3/uL Absolute Neuts (auto) 15.7 H (2.0-8.3) x10*3/uL Absolute Nucleated RBC 0.000 (0.0-0.012) X10*3/uL Nucleated RBC % (auto) 0.0 (0.0-0.2) /100WBC PT 14.0 H (9.9-13.0) SEC INR 1.2 H (0.9-1.1) VBG pH (7.32-7.43) VBG pCO2 mmHg VBG pO2 mmHg VBG HCO3 (22-26) mmol/L VBG O2 Saturation % VBG Base Excess mmol/L Sodium 126 L (135-145) mmol/L Potassium 4.8 (3.3-5.1) mmol/L Chloride 95 L (96-108) mmol/L Carbon Dioxide 10 L* D (22-29) mmol/L Anion Gap 26 H (12-20) BUN 74 H (9-16) mg/dL Creatinine 1.66 H (0.5-1.4) mg/dL Estim Creat Clear Calc 24.8 Estimated GFR 30 POC Glucose (60-115) mg/dL Random Glucose 1040 H* D (60-115) mg/dL Lactic Acid (0.5-2.0) mmol/L Calcium 8.2 L (8.4-10.2) mg/dL Magnesium 2.0 (1.6-2.6) mg/dL Total Bilirubin 0.4 (0.0-1.0) mg/dL Direct Bilirubin < 0.2 (0.0-0.5) mg/dL AST 6 (5-31) U/L ALT < 6 (0-31) U/L Alkaline Phosphatase 80 D (39-117) U/L Troponin I High Sens (<3.5-17.0) ng/L B-Natriuretic Peptide (<100) pg/mL Total Protein 5.3 L D (6.5-8.0) g/dL Albumin 2.7 L D (3.5-5.0) g/dL Lipase 61 (8-78) U/L Urine Color Urine Appearance Urine pH (5.0-8.0) Ur Specific [place] (1.005-1.025) Urine Protein (NEG-TRACE) MG/DL Urine Glucose (UA) (NEG) MG/DL Urine Ketones (NEG) MG/DL Urine Blood (NEG) Urine Nitrite (NEG) Ur Leukocyte Esterase (NEG) Urine RBC (0) /HPF Urine WBC (0-4) /HPF Ur Squamous Epith Cells /LPF Amorphous Sediment /LPF Urine Bacteria /LPF Acetone, Qual Negative (Negative) COVID-19 ([facility]) (Negative) COVID-19 Clin Com Blood Type Antibody Screen Crossmatch 11/08/21 11/08/21 11/08/21 Range/Units 11:16 11:16 11:16 WBC (4.8-10.8) X10*3/uL RBC (4.20-5.50) X10*6/uL Hgb (12.0-16.0) g/dl Hct (37.0-47.0) % MCV (80.0-98.0) fL MCH (27.0-33.0) pg MCHC (31.0-35.0) g/dl RDW (11.0-16.0) % Plt Count (160-400) X10*3/uL MPV (9.4-12.3) fL Immature Gran % (Auto) (0.0-0.4) % Neut % (Auto) (45-73) % Lymph % (Auto) (20-40) % [place] % (Auto) (2-11) % Eos % (Auto) (0-4) % Baso % (Auto) (0-2) % Lymph # (Auto) (1.2-4.9) X10*3/uL [place] # (Auto) (0.1-1.2) X10*3/uL Eos # (Auto) (0.0-0.4) X10*3/uL Baso # (Auto) (0.0-0.2) X10*3/uL Abs Immat Gran (auto) (0.00-0.03) X10*3/uL Absolute Neuts (auto) (2.0-8.3) x10*3/uL Absolute Nucleated RBC (0.0-0.012) X10*3/uL Nucleated RBC % (auto) (0.0-0.2) /100WBC PT (9.9-13.0) SEC INR (0.9-1.1) VBG pH (7.32-7.43) VBG pCO2 mmHg VBG pO2 mmHg VBG HCO3 (22-26) mmol/L VBG O2 Saturation % VBG Base Excess mmol/L Sodium (135-145) mmol/L Potassium (3.3-5.1) mmol/L Chloride (96-108) mmol/L Carbon Dioxide (22-29) mmol/L Anion Gap (12-20) BUN (9-16) mg/dL Creatinine (0.5-1.4) mg/dL Estim Creat Clear Calc Estimated GFR POC Glucose (60-115) mg/dL Random Glucose (60-115) mg/dL Lactic Acid 14.4 H* (0.5-2.0) mmol/L Calcium (8.4-10.2) mg/dL Magnesium (1.6-2.6) mg/dL Total Bilirubin (0.0-1.0) mg/dL Direct Bilirubin (0.0-0.5) mg/dL AST (5-31) U/L ALT (0-31) U/L Alkaline Phosphatase (39-117) U/L Troponin I High Sens 11.0 (<3.5-17.0) ng/L B-Natriuretic Peptide 798 H (<100) pg/mL Total Protein (6.5-8.0) g/dL Albumin (3.5-5.0) g/dL Lipase (8-78) U/L Urine Color Urine Appearance Urine pH (5.0-8.0) Ur Specific [place] (1.005-1.025) Urine Protein (NEG-TRACE) MG/DL Urine Glucose (UA) (NEG) MG/DL Urine Ketones (NEG) MG/DL Urine Blood (NEG) Urine Nitrite (NEG) Ur Leukocyte Esterase (NEG) Urine RBC (0) /HPF Urine WBC (0-4) /HPF Ur Squamous Epith Cells /LPF Amorphous Sediment /LPF Urine Bacteria /LPF Acetone, Qual (Negative) COVID-19 ([facility]ERSON) Negative (Negative) COVID-19 Clin Com See Note Blood Type Antibody Screen Crossmatch 11/08/21 11/08/21 11/08/21 Range/Units 11:16 11:19 11:48 WBC (4.8-10.8) X10*3/uL RBC (4.20-5.50) X10*6/uL Hgb (12.0-16.0) g/dl Hct (37.0-47.0) % MCV (80.0-98.0) fL MCH (27.0-33.0) pg MCHC (31.0-35.0) g/dl RDW (11.0-16.0) % Plt Count (160-400) X10*3/uL MPV (9.4-12.3) fL Immature Gran % (Auto) (0.0-0.4) % Neut % (Auto) (45-73) % Lymph % (Auto) (20-40) % [place] % (Auto) (2-11) % Eos % (Auto) (0-4) % Baso % (Auto) (0-2) % Lymph # (Auto) (1.2-4.9) X10*3/uL [place] # (Auto) (0.1-1.2) X10*3/uL Eos # (Auto) (0.0-0.4) X10*3/uL Baso # (Auto) (0.0-0.2) X10*3/uL Abs Immat Gran (auto) (0.00-0.03) X10*3/uL Absolute Neuts (auto) (2.0-8.3) x10*3/uL Absolute Nucleated RBC (0.0-0.012) X10*3/uL Nucleated RBC % (auto) (0.0-0.2) /100WBC PT (9.9-13.0) SEC INR (0.9-1.1) VBG pH 7.05 L* (7.32-7.43) VBG pCO2 29 mmHg VBG pO2 58 mmHg VBG HCO3 8 L (22-26) mmol/L VBG O2 Saturation 67.0 % VBG Base Excess -20.3 mmol/L Sodium (135-145) mmol/L Potassium (3.3-5.1) mmol/L Chloride (96-108) mmol/L Carbon Dioxide (22-29) mmol/L Anion Gap (12-20) BUN (9-16) mg/dL Creatinine (0.5-1.4) mg/dL Estim Creat Clear Calc Estimated GFR POC Glucose (60-115) mg/dL Random Glucose (60-115) mg/dL Lactic Acid (0.5-2.0) mmol/L Calcium (8.4-10.2) mg/dL Magnesium (1.6-2.6) mg/dL Total Bilirubin (0.0-1.0) mg/dL Direct Bilirubin (0.0-0.5) mg/dL AST (5-31) U/L ALT (0-31) U/L Alkaline Phosphatase (39-117) U/L Troponin I High Sens (<3.5-17.0) ng/L B-Natriuretic Peptide (<100) pg/mL Total Protein (6.5-8.0) g/dL Albumin (3.5-5.0) g/dL Lipase (8-78) U/L Urine Color YELLOW Urine Appearance CLOUDY Urine pH 5.5 (5.0-8.0) Ur Specific [place] 1.010 (1.005-1.025) Urine Protein TRACE (NEG-TRACE) MG/DL Urine Glucose (UA) >=1000 H (NEG) MG/DL Urine Ketones NEG (NEG) MG/DL Urine Blood 1+ H (NEG) Urine Nitrite NEG (NEG) Ur Leukocyte Esterase 1+ H (NEG) Urine RBC 1-4 (0) /HPF Urine WBC 10-14 H (0-4) /HPF Ur Squamous Epith Cells 2+ /LPF Amorphous Sediment 1+ /LPF Urine Bacteria 1+ /LPF Acetone, Qual (Negative) COVID-19 ([facility]) (Negative) COVID-19 Clin Com Blood Type O Positive Antibody Screen NEGATIVE Crossmatch See Detail ECG Data ECG #1: Attestation: I personally reviewed and interpreted this ECG as follows: ECG interpretation date: 11/08/21 ECG interpretation time: 10:43 Interpretation: Rate: 114 Rhythm: sinus tachycardia [place]: normal Normal P waves. Normal AUDREY. widened ST T wave : no CHERRY, nonpsecific qTC: prolonged prior studies: changed from prior 2020 The study has been interpreted contemporaneously by me. . Critical Care Time Critical Care Time Critical Care Time: Yes Total Critical Care Time: 60 Attestation: transfusion, IV insulin, IVF, family discussion I attest to this time spent taking care of the patient Discharge Plan Discharge Clinical Impression: Acute upper GI bleed, Acute blood loss anemia, Acidosis, lactic, Hyperosmolar hyperglycemic state (HHS) Patient Disposition: Admitted As Inpatient Interventions: Admission Worksheet (ED) Last Done: 11/08/21 14:10 Discharge Date/Time: 11/08/21 14:11
[2021-11-08 10:33] LABS: Glucose, Whole Blood > 600 mg/dL (60-115)
[2021-11-08 10:33] LABS: Glucose, Whole Blood > 600 mg/dL (60-115)
[2021-11-08 10:33] LABS: Glucose, Whole Blood > 600 mg/dL (60-115)
[2021-11-08] MEDS: ondansetron HCL 4 MG/2 ML VIAL IVPUSH (10:35)
[2021-11-08] MEDS: Pantoprazole Sodium 40 MG/10 ML VIAL IVPUSH (10:44)
[2021-11-08] MEDS: Insulin Regular, Human 100 UNIT/ML 3 ML VIAL 10 UNIT IVPUSH (10:44)
[2021-11-08] MEDS: 0.9 % Sodium Chloride 1,000 ML 999 ML IVCONT (10:45)
--- NOTE | 2021-11-08 10:50 | PC.NURSE ---
PT COMES IN COVER COFFEE GROUND EMESIS, LARGE AMOUNT OF DARK/FOUL SMELLING LOOSE STOOL, PT VERY PALE IN COLOR, DIFFICULT TO OBTAIN OXYGEN SATURATION, PUT PUT ON THE OXY MASK ON 10L DID FINALLY GET A BRIEF OXYGEN SATURATION AT 89%.
[2021-11-08] MEDS: Magnesium Sulfate/H2O 2 GM/50 ML PIGGYBACK IV (11:09)
[2021-11-08 11:28] LABS: VBG Base Excess -20.3 mmol/L; VBG HCO3 8 mmol/L (22-26); VBG pCO2 29 mmHg; VBG pH 7.05 (7.32-7.43); VBG pO2 58 mmHg
[2021-11-08 11:28] LABS: MANUAL DIFF FLAG NO
[2021-11-08 11:29] LABS: Venous Blood Gas Refer to POC result
[2021-11-08 11:31] LABS: Basophils Absolute Auto 0.1 X10*3/uL (0.0-0.2); Basophils Percent Auto 0.3 % (0-2); Eosinophils Percent Auto 0.1 % (0-4); Imm Gran Abs Auto 0.29 X10*3/uL (0.00-0.03); Imm Gran Pct Auto 1.4 % (0.0-0.4); Lymphocytes Absolute Auto 3.7 X10*3/uL (1.2-4.9); Lymphocytes Percent Auto 18.6 % (20-40); Mean Corpuscular HGB Conc 30.3 g/dl (31.0-35.0); Mean Corpuscular Hemoglobin 28.6 pg (27.0-33.0); Mean Corpuscular Volume 94.7 fL (80.0-98.0); Mean Platelet Volume 13.1 fL (9.4-12.3); Monocytes Absolute Auto 0.3 X10*3/uL (0.1-1.2); Monocytes Percent Auto 1.5 % (2-11); Neutrophils Absolute Auto 15.7 x10*3/uL (2.0-8.3); Neutrophils Percent Auto 78.1 % (45-73); Platelet Count 198 X10*3/uL (160-400); Red Blood Count 2.06 X10*6/uL (4.20-5.50); Red Cell Distribution Width 13.9 % (11.0-16.0); White Blood Count 20.2 X10*3/uL (4.8-10.8)
[2021-11-08 11:39] LABS: INTERNATIONAL NORM RATIO 1.2 (0.9-1.1)
[2021-11-08 11:48] LABS: Hematocrit 19.5 % (37.0-47.0); Hemoglobin 5.9 g/dl (12.0-16.0)
[2021-11-08] MEDS: Piperacillin Sodium/Tazobactam 3.375 GM in 0.9 % Sodium Chloride 50 ML IV ×2 (11:50→18:30)
[2021-11-08] MEDS: Pantoprazole Sodium 80 MG in 0.9 % Sodium Chloride 80 ML 10 MG IV ×2 (11:54→19:14)
[2021-11-08 11:55] LABS: B Type Natriuretic Peptide 798 pg/mL (<100)
[2021-11-08 12:01] LABS: COVID-19 Test Negative (Negative)
[2021-11-08 12:03] LABS: Alanine Aminotransferase < 6 U/L (0-31); Albumin Level 2.7 g/dL (3.5-5.0); Alkaline Phosphatase 80 U/L (39-117); Anion Gap 26 (12-20); Aspartate Amino Transferase 6 U/L (5-31); Bilirubin Direct < 0.2 mg/dL (0.0-0.5); Bilirubin Total 0.4 mg/dL (0.0-1.0); Blood Urea Nitrogen 74 mg/dL (9-16); Calcium 8.2 mg/dL (8.4-10.2); Carbon Dioxide 10 mmol/L (22-29); Chloride 95 mmol/L (96-108); Creatinine Clr Calc Pharmacy 24.8; Estimated Glomerular Filt Rate 30; Glucose Random 1040 mg/dL (60-115); Lipase 61 U/L (8-78); Potassium 4.8 mmol/L (3.3-5.1); Sodium 126 mmol/L (135-145); Total Protein 5.3 g/dL (6.5-8.0)
[2021-11-08 12:04] LABS: Lactic Acid 14.4 mmol/L (0.5-2.0)
[2021-11-08 12:10] LABS: Acetone, serum QL Negative (Negative)
[2021-11-08 12:10] LABS: Appearance Urine CLOUDY; Color Urine YELLOW; Glucose Urine UA >=1000 MG/DL (NEG); Leukocyte Esterase Urine 1+ (NEG); Nitrite Urine NEG (NEG); PH 5.5 (5.0-8.0); UACC Culture Trigger YES; Urine Blood 1+ (NEG); Urine Ketones NEG (NEG); Urine Protein TRACE MG/DL (NEG-TRACE)
--- NOTE | 2021-11-08 12:10 | PC.NURSE ---
pt lethargic, extremely pale, cool to touch, way in place, ns on the monitor, v stable, pt will at times sit up and lean forward saying her back really hurts
[2021-11-08] MEDS: Insulin Regular/NS 100 UNIT/100 ML PLAST..BAG 7 UNIT IVCONT (12:18)
--- NOTE | 2021-11-08 12:23 | PHA.MEDREC ---
Pharmacy Consult ? Medication Reconciliation Pharmacy has completed the medication reconciliation.
[2021-11-08 12:45] LABS: Squamous Epithelial Cell Urine 2+ /LPF
[2021-11-08 12:46] LABS: Bacteria Urine 1+ /LPF
[2021-11-08 12:47] LABS: Amorphous Sediment Urine 1+ /LPF
--- NOTE | 2021-11-08 13:21 | PC.NURSE ---
poc reading high
[2021-11-08 13:25] LABS: Glucose, Whole Blood > 600 mg/dL (60-115)
[2021-11-08 13:25] LABS: Reflex Lactate? Lactic Acid Added
[2021-11-08 13:25] LABS: Glucose, Whole Blood > 600 mg/dL (60-115)
--- NOTE | 2021-11-08 13:29 | P.CNGI_ITS ---
History of Present Illness Data of Consult Service Date: 11/08/21 Requesting physician: Tammy Nguyễn Primary Care Provider: Antonia Mari MD HPI Reason for consult: Acute blood loss anemia 80 yo female with hx of DM, , severe dementia. HLD, TIA, opiate dependance and HTN, who I am seeing for assessment for acute blood loss anemia. minimal hx from patient due to altered mental state, hx mostly from ED staff and daughters Deana and Ute. Patient is a [facility] resident and was altered. EMs was called and she was noted to have coffee ground emesis. This was followed by large melenic stool. She was noted to be hypoxic, concern for aspiration, and issues with maintaining her air way but she is DNR/DNI. Per daughter at baseline patient is fully dependant, needs all ADLs. Had not been acutely unwell prior to this. apparently on aspirin and naprosyn. On arrival, HGB was noted to be 6 g/dl, INR 1.2 --prior HGB had been around 10- 11 g/dl Lactate and glucose significantly elevated Of note, Ute reports mother has had colonoscopies and EGD in past for anemia and stool occult pos work up. She was getting periodic transfusions and was on PPI for a long time, but had been stopped in the recent past. Lab Data Review of Systems Review of Systems: Yes Unobtainable due to mental condition and Unobtainable due to mental status PMFSH Past Medical History Medical History Acute respiratory failure Adjustment disorder Anxiety Aortic valvar stenosis Blindness Dementia Diverticulosis Falls Fibromyalgia GERD (gastroesophageal reflux disease) Hyperlipemia Hypertension Incontinence Major depressive disorder Mitral valve stenosis Obesity Opioid dependence Personality disorder Spinal stenosis TIA (transient ischemic attack) Type 2 diabetes mellitus Vitamin D deficiency Weakness Family History Pertinent family history: per daughter no Fh of stomach issues Social History Social History (Updated 11/08/21 @ 10:26 by Tammy Nguyễn DO) Housing: Group Home Alcohol intake: never Patient Tobacco Use Status: Former Tobacco user Use of substances other than those prescribed or required for medical reasons: No Advance Directives: Yes Advance Directives on File: Yes Advance Directives Date on File: 11/08/21 Meds Allergies Allergy/AdvReac Type Severity Reaction Status Date / Time No Known Allergies Allergy Verified 11/08/21 10:50 Active Medications: Current Medications Pantoprazole Sodium 80 mg/ (Sodium Chloride) 100 mls @ 10 mls/hr IV .Q10H SAVAGE Last Admin: 11/08/21 11:54 Dose: 8 mg/hr, 10 mls/hr Documented by: Insulin Human Regular (Myxredlin) 100 unit in 100 mls @ 7 mls/hr IVCONT .[id number] SAVAGE; Protocol Last Admin: 11/08/21 12:18 Dose: 7 ml/hr, 7 mls/hr Documented by: Lactated Ringer's (Lr) 1,000 mls @ 100 mls/hr IVCONT .Q10H SAVAGE Albumin Human (Kedbumin 25 %) 100 mls @ 100 mls/hr IV Q6H SAVAGE Stop: 11/08/21 19:59 Pharmacy Consult (Consult Rx Perform Med Rec) 1 each MISCELLANE ONCE PRN PRN Reason: Consult order Home Medications Medication Instructions Recorded Confirmed Last Taken Type aspirin 81 mg tablet,delayed 81 mg PO DAILY 11/08/21 11/08/21 Unknown History release atorvastatin 80 mg tablet 1 tab PO BEDTIME 11/08/21 11/08/21 Unknown History ferrous sulfate 325 mg (65 mg 325 mg PO DAILY 11/08/21 11/08/21 Unknown History iron) tablet furosemide 40 mg tablet 1 tab PO BID 11/08/21 11/08/21 Unknown History gabapentin 100 mg capsule 2 cap PO TID 11/08/21 11/08/21 Unknown History insulin glargine 100 unit/mL (3 32 unit SUBCUT DAILY 11/08/21 11/08/21 Unknown History mL) subcutaneous pen (Denise Vargas U-100 Insulin) melatonin 3 mg tablet 6 mg PO BEDTIME 11/08/21 11/08/21 Unknown History metformin 1,000 mg tablet 1 tab PO BID 11/08/21 11/08/21 Unknown History metoprolol tartrate 50 mg tablet 1 tab PO DAILY 11/08/21 11/08/21 Unknown History Physical Exam Vital Signs: Vital Signs: Last Vital Signs Temp 95.7 F L 11/08/21 13:01 Pulse 93 11/08/21 13:01 Resp 20 11/08/21 13:01 BP 110/82 11/08/21 13:01 Pulse Ox 89 L 11/08/21 10:45 BMI result Body Mass Index 31.3 EXAM: GENERAL: The patient is frail, weak, and pale VITAL SIGNS:see workflow HEENT: Nonicteric sclerae, PERRLA, EOMI. Oropharynx clear. Moist mucous membranes. Conjunctivae appear pale. No thyroid mass. CHEST: Chest wall is nontender. HEART: Regular rate and rhythm without murmurs. LUNGS: Clear to auscultation bilaterally. ABDOMEN: Soft, positive bowel sounds, nontender, no organomegaly.no flank tender ness SKIN: No rash, no excessive bruising, petechiae, or purpura. NEUROLOGIC: Cranial nerves II-XII intact without motor/sensory deficit. Psych: minimal hx from patient, altered Results Labs CBC & Chem 7: 11/08/21 11:16 11/08/21 11:16 Labs: Short CBC 11/08/21 Range/Units 11:16 WBC 20.2 H (4.8-10.8) X10*3/uL Hgb 5.9 L* (12.0-16.0) g/dl Hct 19.5 L* (37.0-47.0) % Plt Count 198 (160-400) X10*3/uL BMP 11/08/21 11:16 Sodium 126 L Potassium 4.8 Chloride 95 L Carbon Dioxide 10 L* D BUN 74 H Creatinine 1.66 H Calcium 8.2 L Liver Function 11/08/21 Range/Units 11:16 Total Bilirubin 0.4 (0.0-1.0) mg/dL Direct Bilirubin < 0.2 (0.0-0.5) mg/dL AST 6 (5-31) U/L ALT < 6 (0-31) U/L Alkaline Phosphatase 80 D (39-117) U/L Albumin 2.7 L D (3.5-5.0) g/dL Urine 11/08/21 Range/Units 11:48 Urine Color YELLOW Urine Appearance CLOUDY Urine pH 5.5 (5.0-8.0) Ur Specific [place] 1.010 (1.005-1.025) Urine Protein TRACE (NEG-TRACE) MG/DL Urine Glucose (UA) >=1000 H (NEG) MG/DL Assessment and Plan (1) Acute blood loss anemia: Status: Acute Plan 1/ Acute blood loss anemia, upper GI with hx of hematemesis ddx: erosive esophagitis, PUD, dieulafoym gastritis, AVM, neoplasia. PLAN: 1/ need to stabilize aim for HGB 10 g/dl ---3 units PRBC already ordered as well as plts and Vit K 2/ x 2 IV access points 3/ Agree with IV PPI 4/ EGD probably tomorrow once glucose and acid base improved, blood on board. This will also give a chance for better endoscopic visualization as hopefully s he will clear debris and clots, old blood. If acutely worsens in spite of these measures then may need overnight EGD, will watch the clinical picture. Procedures Date of Service Date of Service: 11/08/21
--- NOTE | 2021-11-08 13:55 | PC.NURSE ---
very large tarry stool, pt cleaned up and transferred to icu
[2021-11-08 14:06] LABS: ~Lactic Acid-LAB USE ONLY 14.2 mmol/L (0.5-2.0)
[2021-11-08 14:17] LABS: Glucose, Whole Blood > 600 mg/dL (60-115)
[2021-11-08] MEDS: Midazolam HCl/PF 2 MG/2 ML VIAL 0.5 MG IVPUSH (14:22)
--- NOTE | 2021-11-08 14:26 | PM.CCHP ---
History of Present Illness Date of Service: 11/08/21 Chief Complaint: Upper GI bleed, hyperglycemic state 80-year-old lady with underlying history of blindness, dementia, opioid dependence, TIA, on aspirin, diabetes mellitus, aortic and mitral valves stenosis, GERD, hypertension admitted on 11/08/2021 with acute blood loss anemia with upper GI bleed and diabetic hyperglycemic hyperosmolar state. On ER evaluation hemoglobin of 5.9 with baseline of hemoglobin of 12 one year prior. Significant lactic acidosis, but no serum ketones. Patient was started on blood product and IV fluid resuscitation, IV PPI, and IV insulin and admitted to the intensive care unit. Gastroenterology evaluation was requested. Review of Systems Review of Systems: Yes Unobtainable due to mental condition and Unobtainable due to mental status PMFSH Past Medical History Medical History (Updated 11/08/21 @ 14:44 by Chuy Hidalgo MD) Acute respiratory failure Adjustment disorder Anxiety Aortic valvar stenosis Blindness Dementia Diverticulosis Falls Fibromyalgia GERD (gastroesophageal reflux disease) Hyperlipemia Hypertension Incontinence Major depressive disorder Mitral valve stenosis Obesity Opioid dependence Personality disorder Spinal stenosis TIA (transient ischemic attack) Type 2 diabetes mellitus Vitamin D deficiency Weakness Social History Social History (Updated 11/08/21 @ 10:26 by Tammy Nguyễn DO) Housing: Jail Alcohol intake: never Patient Tobacco Use Status: Former Tobacco user Use of substances other than those prescribed or required for medical reasons: No Advance Directives: Yes Advance Directives on File: Yes Advance Directives Date on File: 11/08/21 Meds Allergies Allergy/AdvReac Type Severity Reaction Status Date / Time No Known Allergies Allergy Verified 11/08/21 10:50 Active Medications: Current Medications Pantoprazole Sodium 80 mg/ (Sodium Chloride) 100 mls @ 10 mls/hr IV .Q10H SAVAGE Last Admin: 11/08/21 11:54 Dose: 8 mg/hr, 10 mls/hr Documented by: Insulin Human Regular (Myxredlin) 100 unit in 100 mls @ 7 mls/hr IVCONT .[id number] SAVAGE; Protocol Last Titration: 11/08/21 14:14 Dose: 15 ml/hr, 15 mls/hr Documented by: Lactated Ringer's (Lr) 1,000 mls @ 100 mls/hr IVCONT .Q10H SAVAGE Albumin Human (Kedbumin 25 %) 100 mls @ 100 mls/hr IV Q6H SAVAGE Stop: 11/08/21 19:59 Pharmacy Consult (Consult Rx Perform Med Rec) 1 each MISCELLANE ONCE PRN PRN Reason: Consult order Home Medications Medication Instructions Recorded Confirmed Last Taken Type aspirin 81 mg tablet,delayed 81 mg PO DAILY 11/08/21 11/08/21 Unknown History release atorvastatin 80 mg tablet 1 tab PO BEDTIME 11/08/21 11/08/21 Unknown History ferrous sulfate 325 mg (65 mg 325 mg PO DAILY 11/08/21 11/08/21 Unknown History iron) tablet furosemide 40 mg tablet 1 tab PO BID 11/08/21 11/08/21 Unknown History gabapentin 100 mg capsule 2 cap PO TID 11/08/21 11/08/21 Unknown History insulin glargine 100 unit/mL (3 32 unit SUBCUT DAILY 11/08/21 11/08/21 Unknown History mL) subcutaneous pen (Basaglar KwikPen U-100 Insulin) melatonin 3 mg tablet 6 mg PO BEDTIME 11/08/21 11/08/21 Unknown History metformin 1,000 mg tablet 1 tab PO BID 11/08/21 11/08/21 Unknown History metoprolol tartrate 50 mg tablet 1 tab PO DAILY 11/08/21 11/08/21 Unknown History Physical Exam Vital Signs: Vital Signs: Last Vital Signs Temp 95.2 F L 11/08/21 14:22 Pulse 102 H 11/08/21 14:22 Resp 26 H 11/08/21 14:22 BP 135/118 H 11/08/21 14:22 Pulse Ox 89 L 11/08/21 10:45 BMI result Body Mass Index 31.3 Const: General: no acute distress, lethargic (Arousable) and other (Pale) Orientation/consciousness: lethargic (Arousable) Eyes: Sclerae: sclerae normal EOM: EOMs intact bilaterally Neck: Neck: Yes no lymphadenopathy, Yes trachea midline and Yes supple Resp: Effort & Inspection: normal respiratory effort and no respiratory distress Auscultation: clear to auscultation bilaterally Cardio: Rate: tachycardic Rhythm: regular rhythm Heart sounds: no gallops, no murmurs and no rubs GI: Palpation (GI): Soft to palpation and Other GI palpation findings present ( Nontender) Auscultation: normal bowel sounds Extrem: General: No clubbing, No cyanosis and Yes edema (Trace bilateral) Results Labs CBC and Chem 7: 11/08/21 11:16 11/08/21 11:16 Labs: Laboratory Results - last 24 hr 11/08/21 11/08/21 11/08/21 10:20 10:23 10:27 MCV MCH MCHC RDW Plt Count MPV Immature Gran % (Auto) Neut % (Auto) Lymph % (Auto) [place] % (Auto) Eos % (Auto) Baso % (Auto) Lymph # (Auto) [place] # (Auto) Eos # (Auto) Baso # (Auto) Abs Immat Gran (auto) Absolute Neuts (auto) Absolute Nucleated RBC Nucleated RBC % (auto) PT INR VBG pH VBG pCO2 VBG pO2 VBG HCO3 VBG O2 Saturation VBG Base Excess Anion Gap Estim Creat Clear Calc Estimated GFR POC Glucose > 600 H* > 600 H* > 600 H* Random Glucose Lactic Acid Lactic Acid F/U @ 2Hr Calcium Magnesium Total Bilirubin Direct Bilirubin AST ALT Alkaline Phosphatase Troponin I High Sens B-Natriuretic Peptide Total Protein Albumin Lipase Urine Color Urine Appearance Urine pH Ur Specific [place] Urine Protein Urine Glucose (UA) Urine Ketones Urine Blood Urine Nitrite Ur Leukocyte Esterase Urine RBC Urine WBC Ur Squamous Epith Cells Amorphous Sediment Urine Bacteria Acetone, Qual COVID-19 ([facility]) COVID-19 Clin Com Blood Type Antibody Screen Crossmatch 11/08/21 11/08/21 11/08/21 11:16 11:16 11:16 MCV 94.7 MCH 28.6 MCHC 30.3 L RDW 13.9 Plt Count 198 MPV 13.1 H Immature Gran % (Auto) 1.4 H Neut % (Auto) 78.1 H Lymph % (Auto) 18.6 L [place] % (Auto) 1.5 L Eos % (Auto) 0.1 Baso % (Auto) 0.3 Lymph # (Auto) 3.7 [place] # (Auto) 0.3 Eos # (Auto) 0.0 Baso # (Auto) 0.1 Abs Immat Gran (auto) 0.29 H Absolute Neuts (auto) 15.7 H Absolute Nucleated RBC 0.000 Nucleated RBC % (auto) 0.0 PT 14.0 H INR 1.2 H VBG pH VBG pCO2 VBG pO2 VBG HCO3 VBG O2 Saturation VBG Base Excess Anion Gap 26 H Estim Creat Clear Calc 24.8 Estimated GFR 30 POC Glucose Random Glucose 1040 H* D Lactic Acid Lactic Acid F/U @ 2Hr Calcium 8.2 L Magnesium 2.0 Total Bilirubin 0.4 Direct Bilirubin < 0.2 AST 6 ALT < 6 Alkaline Phosphatase 80 D Troponin I High Sens B-Natriuretic Peptide Total Protein 5.3 L D Albumin 2.7 L D Lipase 61 Urine Color Urine Appearance Urine pH Ur Specific [place] Urine Protein Urine Glucose (UA) Urine Ketones Urine Blood Urine Nitrite Ur Leukocyte Esterase Urine RBC Urine WBC Ur Squamous Epith Cells Amorphous Sediment Urine Bacteria Acetone, Qual Negative COVID-19 ([facility]) COVID-19 Clin Com Blood Type Antibody Screen Crossmatch 11/08/21 11/08/21 11/08/21 11:16 11:16 11:16 MCV MCH MCHC RDW Plt Count MPV Immature Gran % (Auto) Neut % (Auto) Lymph % (Auto) [place] % (Auto) Eos % (Auto) Baso % (Auto) Lymph # (Auto) [place] # (Auto) Eos # (Auto) Baso # (Auto) Abs Immat Gran (auto) Absolute Neuts (auto) Absolute Nucleated RBC Nucleated RBC % (auto) PT INR VBG pH VBG pCO2 VBG pO2 VBG HCO3 VBG O2 Saturation VBG Base Excess Anion Gap Estim Creat Clear Calc Estimated GFR POC Glucose Random Glucose Lactic Acid 14.4 H* Lactic Acid F/U @ 2Hr Calcium Magnesium Total Bilirubin Direct Bilirubin AST ALT Alkaline Phosphatase Troponin I High Sens 11.0 B-Natriuretic Peptide 798 H Total Protein Albumin Lipase Urine Color Urine Appearance Urine pH Ur Specific [place] Urine Protein Urine Glucose (UA) Urine Ketones Urine Blood Urine Nitrite Ur Leukocyte Esterase Urine RBC Urine WBC Ur Squamous Epith Cells Amorphous Sediment Urine Bacteria Acetone, Qual COVID-19 ([facility]) Negative COVID-19 Clin Com See Note Blood Type Antibody Screen Crossmatch 11/08/21 11/08/21 11/08/21 11:16 11:19 11:48 MCV MCH MCHC RDW Plt Count MPV Immature Gran % (Auto) Neut % (Auto) Lymph % (Auto) [place] % (Auto) Eos % (Auto) Baso % (Auto) Lymph # (Auto) [place] # (Auto) Eos # (Auto) Baso # (Auto) Abs Immat Gran (auto) Absolute Neuts (auto) Absolute Nucleated RBC Nucleated RBC % (auto) PT INR VBG pH 7.05 L* VBG pCO2 29 VBG pO2 58 VBG HCO3 8 L VBG O2 Saturation 67.0 VBG Base Excess -20.3 Anion Gap Estim Creat Clear Calc Estimated GFR POC Glucose Random Glucose Lactic Acid Lactic Acid F/U @ 2Hr Calcium Magnesium Total Bilirubin Direct Bilirubin AST ALT Alkaline Phosphatase Troponin I High Sens B-Natriuretic Peptide Total Protein Albumin Lipase Urine Color YELLOW Urine Appearance CLOUDY Urine pH 5.5 Ur Specific [place] 1.010 Urine Protein TRACE Urine Glucose (UA) >=1000 H Urine Ketones NEG Urine Blood 1+ H Urine Nitrite NEG Ur Leukocyte Esterase 1+ H Urine RBC 1-4 Urine WBC 10-14 H Ur Squamous Epith Cells 2+ Amorphous Sediment 1+ Urine Bacteria 1+ Acetone, Qual COVID-19 ([facility]) COVID-19 [employer] Com Blood Type O Positive Antibody Screen NEGATIVE Crossmatch See Detail 11/08/21 11/08/21 11/08/21 12:56 13:18 13:20 MCV MCH MCHC RDW Plt Count MPV Immature Gran % (Auto) Neut % (Auto) Lymph % (Auto) [place] % (Auto) Eos % (Auto) Baso % (Auto) Lymph # (Auto) [place] # (Auto) Eos # (Auto) Baso # (Auto) Abs Immat Gran (auto) Absolute Neuts (auto) Absolute Nucleated RBC Nucleated RBC % (auto) PT INR VBG pH VBG pCO2 VBG pO2 VBG HCO3 VBG O2 Saturation VBG Base Excess Anion Gap Estim Creat Clear Calc Estimated GFR POC Glucose > 600 H* > 600 H* Random Glucose Lactic Acid Lactic Acid F/U @ 2Hr 14.2 H* Calcium Magnesium Total Bilirubin Direct Bilirubin AST ALT Alkaline Phosphatase Troponin I High Sens B-Natriuretic Peptide Total Protein Albumin Lipase Urine Color Urine Appearance Urine pH Ur Specific [place] Urine Protein Urine Glucose (UA) Urine Ketones Urine Blood Urine Nitrite Ur Leukocyte Esterase Urine RBC Urine WBC Ur Squamous Epith Cells Amorphous Sediment Urine Bacteria Acetone, Qual COVID-19 ([facility]) COVID-19 [employer] Com Blood Type Antibody Screen Crossmatch 11/08/21 14:10 MCV MCH MCHC RDW Plt Count MPV Immature Gran % (Auto) Neut % (Auto) Lymph % (Auto) [place] % (Auto) Eos % (Auto) Baso % (Auto) Lymph # (Auto) [place] # (Auto) Eos # (Auto) Baso # (Auto) Abs Immat Gran (auto) Absolute Neuts (auto) Absolute Nucleated RBC Nucleated RBC % (auto) PT INR VBG pH VBG pCO2 VBG pO2 VBG HCO3 VBG O2 Saturation VBG Base Excess Anion Gap Estim Creat Clear Calc Estimated GFR POC Glucose > 600 H* Random Glucose Lactic Acid Lactic Acid F/U @ 2Hr Calcium Magnesium Total Bilirubin Direct Bilirubin AST ALT Alkaline Phosphatase Troponin I High Sens B-Natriuretic Peptide Total Protein Albumin Lipase Urine Color Urine Appearance Urine pH Ur Specific [place] Urine Protein Urine Glucose (UA) Urine Ketones Urine Blood Urine Nitrite Ur Leukocyte Esterase Urine RBC Urine WBC Ur Squamous Epith Cells Amorphous Sediment Urine Bacteria Acetone, Qual COVID-19 ([facility]) COVID-19 Clin Com Blood Type Antibody Screen Crossmatch Imaging Radiologist's Impressions: Impressions Chest X-Ray 11/08/21 11:50 IMPRESSION: No acute cardiopulmonary process. Assessment and Plan (1) Acute upper GI bleed: Status: Acute (2) Acute blood loss anemia: Status: Acute (3) Acidosis, lactic: Status: Acute (4) Hyperosmolar hyperglycemic state (HHS): Status: Acute (5) Type 2 diabetes mellitus: Status: Acute (6) Mitral valve stenosis: Status: Acute (7) Blindness: Status: Acute (8) Dementia: Status: Acute Plan Assessment: 80-year-old lady with underlying diabetes mellitus, mitral and aortic valves stenosis, dementia, admitted with acute upper GI bleed and diabetic hyperglycemic hyperosmolar state with significant lactic acidosis Plan: Neuro: No acute issues. Underlying dementia. Cardiac: No acute issues. Underlying hypertension. Pulmonary: No acute issues. Renal: Acute renal failure on the background of chronic renal disease likely secondary to underlying diabetic hyperglycemic hyperosmolar state. Acute metabolic acidosis. Continue IV fluid resuscitation. Monitor urine output and renal indices. Endo: Diabetic hyperglycemic hyperosmolar state, continue on insulin drip. GI: Upper GI bleed inpatient on aspirin. Being transfused 3 units of packed red blood cells and 1 unit of platelets. Gastroenterology service care appreciated. Being planned for EGD. Continues on PPI drip. ID: Empirically covered with broad-spectrum antibiotics. Heme/Onc: Acute blood loss anemia secondary to upper GI bleed, continue to monitor hemoglobin. Transfusion threshold of 7. Now to receive 3 units of packed red blood cells and 1 unit of platelets. Psych: No acute issues. Miscellaneous: No acute issues. Prophylaxis: Compression devices, ppi Diet: Nothing by mouth Critical care time spent: 90 minutes
[2021-11-08] MEDS: Albumin Human 25 % 100 ML IV ×2 (14:35→19:23)
[2021-11-08 15:00] LABS: Glucose, Whole Blood > 600 mg/dL (60-115)
[2021-11-08] MEDS: Metoclopramide HCl 10 MG/2 ML VIAL 5 MG IVPUSH (15:01)
[2021-11-08] MEDS: Phenylephrine HCL 20 MG in 0.9 % Sodium Chloride 250 ML 54.96 MG IVCONT ×2 (15:08→18:26)
[2021-11-08 15:28] LABS: Reflex Lactate? 2 Y
[2021-11-08 16:04] LABS: Glucose, Whole Blood > 600 mg/dL (60-115)
--- NOTE | 2021-11-08 16:23 | PM.EVENT ---
Event Note Date of Service: 11/08/21 Event Note: Spoke with family about DNR/DNI status. Three children 2 daughters and one son who we waited for coming from [place] at request of the two other sisters. Patient with possible GI bleed who is severely acidotic with lactic acid 14, Hb. 5.9 before being transfused 2 units with a 3rd hanging, low dose elliott drip and unstable. Along with the Tube Machine Operator we spoke to the family about options and what the wanted to do about proceding with the endoscopy along with any measures that were to be taken if the patient needed to be resusictated. After informed consent was given to the three family memebers they decided that they wanted to wait and see if there was any chance of improvement and not proceed with the case. Out of repect to the health care proxy's wishes we did not proceed with the case. Thank you.
[2021-11-08 16:27] LABS: Basophils Absolute Auto 0.1 X10*3/uL (0.0-0.2); Basophils Percent Auto 0.2 % (0-2); Hematocrit 34.3 % (37.0-47.0); Hemoglobin 10.8 g/dl (12.0-16.0); Imm Gran Abs Auto 0.83 X10*3/uL (0.00-0.03); Imm Gran Pct Auto 2.7 % (0.0-0.4); Lymphocytes Absolute Auto 1.4 X10*3/uL (1.2-4.9); Lymphocytes Percent Auto 4.5 % (20-40); MANUAL DIFF FLAG SCAN; Mean Corpuscular HGB Conc 31.5 g/dl (31.0-35.0); Mean Corpuscular Hemoglobin 30.3 pg (27.0-33.0); Mean Corpuscular Volume 96.3 fL (80.0-98.0); Mean Platelet Volume 12.8 fL (9.4-12.3); Monocytes Absolute Auto 0.2 X10*3/uL (0.1-1.2); Monocytes Percent Auto 0.7 % (2-11); NRBC Pct Auto 0.1 /100WBC (0.0-0.2); Neutrophils Absolute Auto 28.1 x10*3/uL (2.0-8.3); Neutrophils Percent Auto 91.9 % (45-73); Platelet Count 146 X10*3/uL (160-400); Red Blood Count 3.56 X10*6/uL (4.20-5.50); Red Cell Distribution Width 15.2 % (11.0-16.0); SCAN SMEAR FLAG 1
[2021-11-08 16:34] LABS: White Blood Count 30.6 X10*3/uL (4.8-10.8)
[2021-11-08 16:49] LABS: SLIDE REVIEW VERIFIED
[2021-11-08 17:03] LABS: Glucose, Whole Blood > 600 mg/dL (60-115)
[2021-11-08] MEDS: Insulin Regular/NS 100 UNIT/100 ML PLAST..BAG 39 UNIT IVCONT ×4 (17:16→23:30)
[2021-11-08 17:17] LABS: Lactic Acid 13.3 mmol/L (0.5-2.0)
[2021-11-08 17:18] LABS: Anion Gap 29 (12-20); Blood Urea Nitrogen 72 mg/dL (9-16); Calcium 8.7 mg/dL (8.4-10.2); Carbon Dioxide 9 mmol/L (22-29); Chloride 97 mmol/L (96-108); Creatinine Clr Calc Pharmacy 25.6; Estimated Glomerular Filt Rate 31; Glucose Random 764 mg/dL (60-115); Potassium 4.7 mmol/L (3.3-5.1); Sodium 130 mmol/L (135-145)
[2021-11-08] MEDS: Lactated Ringers 1,000 ML 999 ML IV ×2 (17:35→18:38)
[2021-11-08 18:05] LABS: Glucose, Whole Blood 599 mg/dL (60-115)
[2021-11-08 18:23] LABS: Reflex Lactate? Lactic Acid Added
[2021-11-08 19:00] LABS: ~Lactic Acid-LAB USE ONLY 12.3 mmol/L (0.5-2.0)
[2021-11-08 19:09] LABS: Glucose, Whole Blood 538 mg/dL (60-115)
[2021-11-08 20:08] LABS: Glucose, Whole Blood 449 mg/dL (60-115)
[2021-11-08 20:42] LABS: Reflex Lactate? 2 Y
[2021-11-08] MEDS: Phenylephrine HCL 20 MG in 0.9 % Sodium Chloride 250 ML 219.85 MG IVCONT (21:00)
[2021-11-08 21:13] LABS: Glucose, Whole Blood 414 mg/dL (60-115)
[2021-11-08] MEDS: Phenylephrine HCL 20 MG in 0.9 % Sodium Chloride 250 ML 274.81 MG IVCONT ×2 (21:55→23:00)
[2021-11-08 21:58] LABS: ~Lactic Acid-LAB USE ONLY 11.9 mmol/L (0.5-2.0)
[2021-11-08 22:09] LABS: Glucose, Whole Blood 385 mg/dL (60-115)
[2021-11-08 23:06] LABS: Glucose, Whole Blood 313 mg/dL (60-115)
[2021-11-08] MEDS: Dextrose 5 % and Lactated Ring 1,000 ML 100 ML IVCONT (23:31)
[2021-11-09] VITALS (7 sets, daily range): BP systolic 62–126; BP diastolic 33–86; PULSE 66–99; RESP 13–40; O2SAT 92–95; BMI 35.0
[2021-11-09] MEDS: Phenylephrine HCL 20 MG in 0.9 % Sodium Chloride 250 ML 274.81 MG IVCONT ×2 (00:22→00:57)
[2021-11-09 00:31] LABS: Glucose, Whole Blood 285 mg/dL (60-115)
[2021-11-09] MEDS: Piperacillin Sodium/Tazobactam 3.375 GM in 0.9 % Sodium Chloride 50 ML IV ×2 (00:35→05:05)
[2021-11-09 01:03] LABS: Glucose, Whole Blood 281 mg/dL (60-115)
[2021-11-09 01:27] LABS: Anion Gap 24 (12-20); Blood Urea Nitrogen 69 mg/dL (9-16); Calcium 8.2 mg/dL (8.4-10.2); Carbon Dioxide 9 mmol/L (22-29); Chloride 107 mmol/L (96-108); Creatinine Clr Calc Pharmacy 27.3; Estimated Glomerular Filt Rate 33; Glucose Random 247 mg/dL (60-115); Sodium 136 mmol/L (135-145)
[2021-11-09] MEDS: Phenylephrine HCL 20 MG in 0.9 % Sodium Chloride 250 ML 329.77 MG IVCONT ×6 (01:47→05:43)
[2021-11-09] MEDS: Insulin Regular/NS 100 UNIT/100 ML PLAST..BAG 35 UNIT IVCONT (01:51)
[2021-11-09] MEDS: Sodium Bicarbonate 8.4% 50 MEQ/50 ML SYRINGE IVPUSH ×2 (01:52→01:53)
[2021-11-09 02:15] LABS: Glucose, Whole Blood 261 mg/dL (60-115)
--- NOTE | 2021-11-09 03:06 | PC.NURSE ---
Addendum entered by Wei Wong RN 11/09/21 06:30: decreased hr to 40's-50's 6am....became apneic.....agonal rhythm followed by asystole 06:25...icu button breaker at bedside to pronounce patient..family at bedside Original Note: CARE ASSUMED 23:15...AWAKE...CONFUSED BUT CONVERSANT..CHAPMAN...REMAINS TACHYPNEIC..RR 36-40...SAO2 92-94% ROOM AIR...MORA WITH MINIMAL OUTPUT...PROTONIX DRIP 8 MG/HR...INSULIN DRIP 39 UNITS/HR AT HS...D5LR 100 CC/HR STARTED AT HS PER ICU SPOT SPRAYER....NEOSYNEPHRINE DRIP TITRATED FROM 5 TO 6 MCG/KG/MIN FOR CONTINUED LOW BP....VASOPRESSIN 0.04 UNITS/MIN STARTED PER SEP...Na HCO3 50MEQ IV X2 AMPS PER SPOT SPRAYER....SBP DIFFICULT TO OBTAIN..REMAINS SBP 50'S-60'S...FAMILY CONTACTED AND ARRIVED TO UNIT...REAL ESTATE ADMINISTRATIVE ASSISTANT TO BEDSIDE PER FAMILY REQUEST....FAMILY AT BEDSIDE AT PRESENT..PATIENT NAPPING INTERMITTANTLY
[2021-11-09 04:11] LABS: Glucose, Whole Blood 185 mg/dL (60-115)
[2021-11-09] MEDS: Pantoprazole Sodium 80 MG in 0.9 % Sodium Chloride 80 ML 10 MG IV (04:19)
[2021-11-09] MEDS: Insulin Regular/NS 100 UNIT/100 ML PLAST..BAG 30 UNIT IVCONT (04:33)
[2021-11-09 05:24] LABS: VBG Base Excess -21.5 mmol/L; VBG HCO3 9 mmol/L (22-26); VBG O2 % Saturation < 30.0 %; VBG pCO2 37 mmHg; VBG pH 6.98 (7.32-7.43); VBG pO2 27 mmHg
[2021-11-09 05:36] LABS: Glucose, Whole Blood 141 mg/dL (60-115)
[2021-11-09 06:03] LABS: Basophils Absolute Auto 0.1 X10*3/uL (0.0-0.2); Basophils Percent Auto 0.2 % (0-2); Hematocrit 31.8 % (37.0-47.0); Hemoglobin 10.4 g/dl (12.0-16.0); Imm Gran Abs Auto 1.23 X10*3/uL (0.00-0.03); Lymphocytes Absolute Auto 1.9 X10*3/uL (1.2-4.9); Lymphocytes Percent Auto 6.2 % (20-40); MANUAL DIFF FLAG SCAN; Mean Corpuscular HGB Conc 32.7 g/dl (31.0-35.0); Mean Corpuscular Hemoglobin 30.5 pg (27.0-33.0); Mean Corpuscular Volume 93.3 fL (80.0-98.0); Monocytes Absolute Auto 1.2 X10*3/uL (0.1-1.2); Monocytes Percent Auto 3.8 % (2-11); NRBC Pct Auto 1.1 /100WBC (0.0-0.2); Neutrophils Absolute Auto 26.7 x10*3/uL (2.0-8.3); Neutrophils Percent Auto 85.8 % (45-73); Red Blood Count 3.41 X10*6/uL (4.20-5.50); Red Cell Distribution Width 14.6 % (11.0-16.0); SCAN SMEAR FLAG 1
[2021-11-09 06:04] LABS: Platelet Count 73 X10*3/uL (160-400)
[2021-11-09 06:17] LABS: Albumin Level 3.1 g/dL (3.5-5.0); Anion Gap 26 (12-20); Blood Urea Nitrogen 66 mg/dL (9-16); Calcium 7.7 mg/dL (8.4-10.2); Carbon Dioxide 9 mmol/L (22-29); Chloride 109 mmol/L (96-108); Creatinine Clr Calc Pharmacy 29.3; Estimated Glomerular Filt Rate 34; Glucose Random 118 mg/dL (60-115); Phosphorus 5.7 mg/dL (2.7-4.5); Potassium 3.9 mmol/L (3.3-5.1); Sodium 140 mmol/L (135-145)
--- NOTE | 2021-11-09 06:25 | PM.CCN ---
Critical Care Event Note Summary Date of Service: 11/09/21 Code activated: No Narrative: This case had a high probability of a clinically significant, sudden, or life threatening deterioration of this patient's condition which required my full and direct attention, intervention and personal management. Critical Care Time (minutes): 30 Comment: ?Deterioration of patient's clinical status over night, patient requiring max support with pressors and profound acidemia.? Code status was DNR /DNI,? family was asked to come to the bedside and goals of care reassessed. Family requested for patient to continue current medical management but no escalation of care. ?At? 0615 patient bradycardic,? and eventually asystole at 0625.? On my assessment, the patient had absent peripheral pulses.? Pupils fixed and dilated.? Absent heart sounds? and no spontaneous breathing.? Patient pronounced at 0625.? Daughters and son at bedside at [place]. Not a medical exam candidate.? Organ donation was notified by nursing.? Attending Dr Hidalgo notified? Critical Care Time Critical Care Time (minutes): 30
[2021-11-09 06:38] LABS: SLIDE REVIEW VERIFIED
--- NOTE | 2021-11-09 06:38 | PC.NURSE ---
[facility] [employer] NOTIFIED OF EXPIRATION...PER MARCO FROM [facility] THEY DECLINE CASE/REFERRAL
[2021-11-09 06:49] LABS: Venous Blood Gas Refer to POC result
--- NOTE | 2021-11-09 08:57 | MHC.CM.PN ---
Patient prior to being seen by Case Management.
--- NOTE | 2021-11-09 10:03 | P.DN_ITS ---
Discharge Sum: Prov Provider Primary care physician: Antonia Mari MD Discharge Sum: Diag Contributing Factors (1) Acute upper GI bleed: (2) Acute blood loss anemia: (3) Acidosis, lactic: (4) Hyperosmolar hyperglycemic state (HHS): (5) Type 2 diabetes mellitus: (6) Mitral valve stenosis: (7) Blindness: (8) Dementia: Discharge Sum: Summary Date and Time Date of admission: 11/08/21 12:48 Date of : 11/09/21 Time of : 06:25 Summary Details: 80-year-old lady with underlying history of dementia, blindness, TIA on aspirin, opioid dependenc, diabetes mellitus, aortic and mitral valves stenosis , GERD, hypertension in DNR/DNI status admitted on 11/08/2021 with acute blood loss anemia with upper GI bleed and diabetic hyperglycemic hyperosmolar state with profound lactic acidosis. Patient was started on blood product and IV fluid resuscitation. She has received 4 units of packed red blood cells, unit of FFP, and unit of platelets. She was covered empirically with broad-spectrum antibiotics. Patient's family declined placement of central venous access. Patient was started on vasopressor support. Gastroenterology service was consulted and upper endoscopy was planned, however patient's family declined and endoscopy as not consistent with patient's of wishes and decided to continue with only medical management. Unfortunately, patient has developed progressive shock, despite maximum vasopressor support, resulting in cardiopulmonary arrest at around 06:20a.m.. No CPR was performed as patient code status was do not resuscitate and patient passed peacefully and was pronounced at 06:25a.m. Additional Data Confirmation of as documented by pronouncing clinician: no pulse, no respirations and no heart sounds Family: at bedside Attending physician: Chuy Hidalgo MD
--- NOTE | 2021-11-10 13:26 | P.CDIR_ITS ---
Documented by User: Kasandra Colin RN 11/10/21 13:32 Retrospective Query PHYSICIAN'S DOCUMENTATION REQUEST Date of Query: 11/10/21 1327 Patient Name: Edith Griffin Admit Date: 11/08/21 Dear Doctor, A review of the medical record indicates additional documentation may be needed. Please review below and update the documentation accordingly. Clinical Indicators: Risk Factors/Clinical Indicators/Treatments Respiratory rate 48 SAT 89% Treated with oxymask at 10L Per ED note 11/08/21: mild respiratory distress, tachypneic and retractions breath sounds decreased and coarse hypoxia and difficulty clearing airway Recognized standard criteria for respiratory failure includes: (Source: [facility] Hospitalist May 2013) ABGs (1 or more) Symptoms: ? PO2 <60 or RA SpO2 <91% ? Tachypnea, SOB, dyspnea ? PcO2 >50 and pH <7.35 ? Pallor or cyanosis ? pO2 decrease or pcO2 increase ? Anxiety or restlessness by 10 mm/Hg from baseline if known ? Use of accessory muscles ? Retractions (grunting in newborns) ? Unable to speak in complete sentences P/F ratio < 300 Supplemental O2 requirement of 40% or more Intubation is not required Clarify which of the following accurately represents the patient's respiratory status: * Acute respiratory failure * Acute respiratory distress * Hypoxia * Other (please specify) * Unable to determine Please include type if known: * Hypoxic * Hypercapnic * Hypoxic and hypercapnic * Unable to determine Use of terms such as suspected, likely, concern for, or probable (associated with a specific diagnosis that is being evaluated, monitored, or treated as if it exists) are acceptable and can be coded in the inpatient setting, when documented at the time of discharge. Thank you, Kasandra Colin RN Extension: [phone] Please use your independent medical judgment in providing your response. THIS QUERY IS PART OF THE PERMANENT MEDICAL RECORD Documented by User: Chuy Hidalgo MD 11/12/21 09:10 Retrospective Query Provider Response: Other (respiratory distress secondary to acute blood loss anemia)
== END 2021-11-09 09:33 | disposition expired | DRG 377 ==
LOC: HO.ED 12:10 → HO.EDOVER 13:06 → HO.ICU 13:21
PROVIDERS: Registered Nurse Community Health; Admitting Provider Internal Medicine Pulmonary Disease; Emergency Provider Emergency Medicine; PCP Internal Medicine; Visit Provider Internal Medicine Pulmonary Disease
DX: K92.2 Gastrointestinal hemorrhage, unspecified (principal); E11.00 Type 2 diabetes mellitus with hyperosmolarity without nonketotic hyperglycemic-hyperosmolar coma (NKHHC); D62 Acute posthemorrhagic anemia; E87.2 Acidosis; F11.20 Opioid dependence, uncomplicated; R57.9 Shock, unspecified; N17.9 Acute kidney failure, unspecified; R06.03 Acute respiratory distress; E11.22 Type 2 diabetes mellitus with diabetic chronic kidney disease; N18.9 Chronic kidney disease, unspecified; Z66 Do not resuscitate; Z91.14 Patient's other noncompliance with medication regimen; Z20.822 Contact with and (suspected) exposure to COVID-19; K21.9 Gastro-esophageal reflux disease without esophagitis; F41.9 Anxiety disorder, unspecified; F03.90 Unspecified dementia, unspecified severity, without behavioral disturbance, psychotic disturbance, mood disturbance, and anxiety; I12.9 Hypertensive chronic kidney disease with stage 1 through stage 4 chronic kidney disease, or unspecified chronic kidney disease; H54.7 Unspecified visual loss; E78.5 Hyperlipidemia, unspecified; I46.9 Cardiac arrest, cause unspecified; I08.0 Rheumatic disorders of both mitral and aortic valves; Z86.73 Personal history of transient ischemic attack (TIA), and cerebral infarction without residual deficits; Z87.891 Personal history of nicotine dependence; Z79.4 Long term (current) use of insulin; Z79.82 Long term (current) use of aspirin; Z79.84 Long term (current) use of oral hypoglycemic drugs; Z79.899 Other long term (current) drug therapy
CPT/HCPCS: 36415; 71045; 74176; 80048; 80076; 81001; 81003; 82009; 82040; 82803; 82947; 83605; 83690; 83735; 83880; 84100; 84484; 85025; 85610; 86850; 86900; 86901; 86920; 86923; 87040; 87077; 87086; 87088; 87186; 87205; 87635; 93005; 99285; 99499; J2250; J2370; J2405; J2543; J2765; J3475; P9016; P9017; P9047; P9073